=== PATIENT | female | born 1955 | race Caucasian/White ===

== ENCOUNTER 2020-07-24 15:37 | Observation (INO) | payer OTHER ==
[2020-07-24] MEDS ORDERED: POLYETHYL GLY 3350 17 GM/DOSE PO PRN (17:00)
[2020-07-24] MEDS ORDERED: NACHLORIDE 0.45% 1,000 ML IV SCH (17:00)
[2020-07-24] MEDS ORDERED: ONDANSETRON 4 MG (ODT) TAB PO PRN (17:00)
[2020-07-24] MEDS ORDERED: LOPERAMIDE HCL 2 MG CAPSULE PO PRN (17:00)
[2020-07-24] MEDS ORDERED: DIPHENHYDRAMINE 25 MG TAB/CAP PO PRN (17:00)
[2020-07-24] MEDS ORDERED: ONDANSETRON 4 MG/2 ML VIAL IV PRN (17:00)
[2020-07-24] MEDS ORDERED: INFLUENZA VACCINE (for 3y+) 0.5 ML DOSE IMVAC ONE (17:00)
[2020-07-24] MEDS ORDERED: ACETAMINOPHEN 325 MG TABLET PO PRN (17:00)
[2020-07-24] MEDS ORDERED: PNEUMOCOCCAL VACCINE 0.5 ML IMVAC ONE (17:00)
[2020-07-24] MEDS ORDERED: METRONIDAZOLE 500mg IVPB 500 MG/100 ML BAG IV SCH (17:00)
[2020-07-24] MEDS ORDERED: D50W 25 GM/50 ML SYRINGE IV PRN (17:34)
[2020-07-24] MEDS ORDERED: GLUCAGON 1 MG/VIAL IM PRN (17:34)
[2020-07-24] MEDS ORDERED: HYDROMORPHONE HCL 1 MG/ML INJ ONE (18:09)
[2020-07-24] MEDS ORDERED: ONDANSETRON 4 MG/2 ML VIAL ONE (18:09)
[2020-07-24] MEDS ORDERED: ENOXAPARIN 40 MG/0.4 ML SQ ONE (18:10)
[2020-07-24] MEDS ORDERED: METRONIDAZOLE 500mg IVPB 500 MG/100 ML BAG IV ONE (18:10)
[2020-07-24] MEDS ORDERED: CIPROFLOXACIN 400mg IV 400 MG/200 ML BAG IV ONE (18:10)
[2020-07-24] MEDS: HYDROMORPHONE HCL 1 MG/ML INJ IV PRN ×2 (18:15→21:47)
[2020-07-24 18:45] LABS: Absolute Lymphocytes (CBC) 1.6 K/uL (0.7-4.9); Basophils % 0.6 % (0-1.3); Hematocrit 33.3 % (36.0-45.0); Lymphocytes % 31.9 % (15.3-44.8); MPV 8.3 fL (7.6-11.3); RBC Red Blood Cell Count 3.77 M/uL (3.86-4.86)
[2020-07-24 18:52] LABS: Protime INR 1.1
--- NOTE | 2020-07-24 18:58 | RAD REPORT ---
EXAM DESCRIPTION: CTAbdomen Pelvis W Contrast - 07/24/2020 6:28 pm CLINICAL HISTORY: Abdominal pain. abd pain COMPARISON: No comparisons TECHNIQUE: Biphasic CT imaging of the abdomen and pelvis was performed with 100 ml non-ionic IV cont rast. All CT scans are performed using dose optimization technique as appropriate and may include automated exposure control or mA/KV adjustment according to patient size. FINDINGS: The lung bases are clear. The liver, spleen, pancreas, adrenal glands are within normal limits. Possible small stones in both k idneys. No hydronephrosis. No bowel obstruction, free air, free fluid or abscess. Prominent sigmoid diverticulosis coli without diverticulitis. The appendix is normal. No evidence of significant lymphadenopathy. No suspicious bony findings. Right-sided vascular stents. IMPRESSION: Sigmoid diverticulosis coli without diverticulitis. Small stones in both kidneys without hydronephrosis.
--- NOTE | 2020-07-24 19:05 | RAD REPORT ---
EXAM DESCRIPTION: RAD - Chest Pa And Lat (2 Views) - 07/24/2020 6:36 pm CLINICAL HISTORY: abd pain Chest pain. COMPARISON: CHEST PA AND LAT 2 VIEW dated 03/21/2009; CHEST PA AND LAT 2 VIEW dated 11/15/2003; Abdome n Pelvis W Contrast dated 07/24/2020 FINDINGS: The lungs are clear. The heart is mildly enlarged in size. No displaced fractures. Aortic atherosclerosis.
[2020-07-24 19:33] LABS: ALT/SGPT 18 U/L (12-78); AST/SGOT 17 U/L (15-37); Albumin 3.4 g/dL (3.4-5.0); Alkaline Phosphatase 101 U/L (45-117); BUN Blood Urea Nitrogen 11 mg/dL (7-18); Bicarbonate 27 mmol/L (21-32); Bilirubin Direct < 0.1 mg/dL (0-0.2); Bilirubin Total 0.4 mg/dL (0.2-1.0); Glucose Level 74 mg/dL (74-106); Phosphorus 3.6 mg/dL (2.5-4.9); Potassium 3.7 mmol/L (3.5-5.1); Protein, Total 6.4 g/dL (6.4-8.2); Sodium Level 144 mmol/L (136-145)
[2020-07-24 20:15] VITALS: BMI 26.8
[2020-07-24] MEDS: ENOXAPARIN 40 MG/0.4 ML SQ SCH (20:28)
[2020-07-24] MEDS: CIPROFLOXACIN 400 MG/200 ML IVPB IV SCH (20:58)
[2020-07-24] MEDS: INSULIN -REGULAR HUMAN 50 UNIT/0.5 ML ML SQ SCH (21:00)
[2020-07-24 22:32] LABS: Urine Appearance CLEAR; Urine Bilirubin NEGATIVE (NEG); Urine Blood TRACE (NEG); Urine Color YELLOW; Urine Glucose NEGATIVE (NEG); Urine Microscopic Reflex ORDER UMIC; Urine Protein NEGATIVE (NEG); Urine Specific Gravity >=1.030 (1.005-1.030)
[2020-07-24 23:39] LABS: Urine Bacteria <20 /HPF (<20); Urine RBC <5 /HPF (NONE SEEN)
[2020-07-25 04:15] LABS: Absolute Lymphocytes (CBC) 1.8 K/uL (0.7-4.9); Basophils % 0.5 % (0-1.3); Lymphocytes % 31.5 % (15.3-44.8); MPV 8.4 fL (7.6-11.3); RBC Red Blood Cell Count 3.74 M/uL (3.86-4.86)
[2020-07-25 04:41] LABS: Magnesium 2.1 mg/dL (1.8-2.4); Potassium 3.9 mmol/L (3.5-5.1)
[2020-07-25] MEDS: METRONIDAZOLE 500mg IVPB 500 MG/100 ML BAG IV SCH ×2 (04:53→12:03)
[2020-07-25] MEDS: HYDROMORPHONE HCL 1 MG/ML INJ IV PRN ×3 (05:19→13:43)
[2020-07-25] MEDS: INSULIN -REGULAR HUMAN 50 UNIT/0.5 ML ML SQ SCH ×3 (07:30→16:12)
[2020-07-25 08:56] VITALS: O2SAT 94
[2020-07-25] MEDS ORDERED: POTASSIUM CL SA 10 MEQ TAB PO ONE (09:00)
[2020-07-25] MEDS: CIPROFLOXACIN 400 MG/200 ML IVPB IV SCH (09:47)
[2020-07-25] MEDS: ENOXAPARIN 40 MG/0.4 ML SQ SCH (09:48)
[2020-07-25] MEDS ORDERED: hydrOXYzine HCL 25 MG TAB PO PRN (13:03)
[2020-07-25] MEDS ORDERED: MINERAL OIL 30 ML UCUP PO ONE (13:48)
--- NOTE | 2020-07-25 14:38 | P.CNS ---
Date of Consult: 07/25/20 PC: This 65-year-old female presents emergency room with severe right lower quadrant abdominal pain for diagnosis and treatment. HPC: Patient states she had sudden onset of severe hard cramping abdominal pain. Was located just below her umbilicus. States she has had a couple bouts of this in the past. She has been to the ER is on occasion. PMH: Hypertension, coronary artery disease, eqv-wlccldw-ufoiorote diabetes, episodes of diverticulitis PSHx: Previous hysterectomy, cholecystectomy SOC: States she is allergic to latex adhesive tape (medication list has been reviewed) SYS REVIEW: No cough, wheeze, shortness of breath. Denies any urinary complaints. O/E awake alert comfortable at the moment, asking when she is going to be discharged HEENT:, nonicteric Chest: Chest movement equal bilaterally l ABD: Abdomen is soft, minimal tenderness, no guarding or rebound LOCO: Intact DATA: CT scan essentially negative IMPRESSION: Abdominal pain of unknown etiology PLAN: Patient states her pain is resolving. I believe she may have some most likely adhesions from her prior surgeries. She says she has been drinking much since last week. Also again has some difficulty chewing her food. I have ordered some mineral oil, but I do not feel she has a surgical abdomen at this moment. She can be discharged and followed up.
[2020-07-25] MEDS ORDERED: NICOTINE 14 MG/PAT TD SCH (16:00)
--- NOTE | 2020-07-25 16:08 | RAD REPORT ---
EXAM DESCRIPTION: MRI - MRA Abdomen W/Wo Cont - 07/25/2020 3:26 pm CLINICAL HISTORY: abdominal pain COMPARISON: No comparisons FINDINGS: MR angiography of the abdominal aorta was performed. Mild atheromatous narrowing is seen involving the origin of the celiac axis and SMA. Single patent bi lateral renal arteries are present. Patent LUCIA is also seen. Mild atheromatous narrowing is seen of t he infrarenal abdominal aorta without aneurysm. Stent is likely present in the right common iliac art scarlett. IMPRESSION: No significant flow abnormality of mesenteric arterial system observed.
[2020-07-25 16:30] VITALS: BP 142/66; TEMP 97.6
--- NOTE | 2020-07-25 21:08 | P.DS ---
Admission Date: 07/24/20 Discharge Date: 07/25/20 Disposition: ROUTINE DISCHARGE Discharge Condition: FAIR Brief History of Present Illness: LEWIS HAS RLQ PAIN. THIS IS MODERATE. HER CT SCAN SHOWED NO ISSUES WITH APPENDICITIS. SHE HAS DIVERTICULOSIS BUT NO VISIBLE INFECTION. I DID MRA ALSO SHE IS A SMOKER. NO STENOSIS IN ABDOMEN. SHE SI STABLE TO GO HOEM WITH ABX THAT MAY TREAT OCCULT DIVERTICULITIS. SHE WILL NEED COLONOSCOPY LATER, POSSIBLE AFTER AUGUST. Vital Signs/Physical Exam: Temp Pulse Resp BP Pulse Ox 97.6 F 70 16 142/66 H 93 07/25/20 16:00 07/25/20 16:00 07/25/20 16:00 07/25/20 16:00 07/25/20 16:00 Laboratory Data at Discharge: WBC 5.7 K/uL (4.3-10.9) 07/25/20 03:32 Hgb 11.6 g/dL (12.0-15.0) L 07/25/20 03:32 Hct 33.0 % (36.0-45.0) L 07/25/20 03:32 Plt Count 158 K/uL (152-406) 07/25/20 03:32 PT 12.9 SECONDS (9.5-12.5) H 07/24/20 18:10 INR 1.10 07/24/20 18:10 APTT 30.7 SECONDS (24.3-36.9) 07/24/20 18:10 Sodium 143 mmol/L (136-145) 07/25/20 03:32 Potassium 3.9 mmol/L (3.5-5.1) 07/25/20 03:32 BUN 11 mg/dL (7-18) 07/25/20 03:32 Creatinine 0.73 mg/dL (0.55-1.3) 07/25/20 03:32 Glucose 85 mg/dL (74-106) 07/25/20 03:32 Phosphorus 3.6 mg/dL (2.5-4.9) 07/24/20 18:10 Magnesium 2.1 mg/dL (1.8-2.4) 07/25/20 03:32 Total Bilirubin 0.4 mg/dL (0.2-1.0) 07/24/20 18:10 AST 17 U/L (15-37) 07/24/20 18:10 ALT 18 U/L (12-78) 07/24/20 18:10 Alkaline Phosphatase 101 U/L (45-117) 07/24/20 18:10 Home Medications: Metformin HCl [Glucophage] 500 mg PO DAILY WITH BREAKFAST 12/30/17 Aspirin Chewable [Aspirin Chewable*] 1 tab PO DAILY 07/24/20 Atorvastatin Calcium [Lipitor*] 1 tab PO DAILY 07/24/20 Duloxetine [Cymbalta *] 50 mg PO DAILY 07/24/20 Isosorbide Mononitrate [Isosorbide Mononitrate ER] 1 tab PO DAILY 07/24/20 Metoprolol Succinate [Toprol Xl*] 1 tab PO DAILY 07/24/20 Prazosin HCl [Minipress*] 1 tab PO DAILY 07/24/20 hydrOXYzine HCL [Atarax*] 1 tab PO DAILYPRN PRN 07/24/20 Followup: Franklyn Dougherty MD [Primary Care Provider] -
[2020-07-26] MEDS ORDERED: METFORMIN HCL 500 MG TAB PO SCH (08:00)
[2020-07-26] MEDS ORDERED: METOPROLOL XL 25 MG TAB PO SCH (09:00)
[2020-07-26] MEDS ORDERED: ASPIRIN 81 MG CHEWABLE TABLET PO SCH (09:00)
[2020-07-26] MEDS ORDERED: DULOXETINE 30 MG CAP PO SCH (09:00)
[2020-07-26] MEDS ORDERED: ISOSORBIDE MONO SR 30 MG TAB PO SCH (09:00)
[2020-07-26] MEDS ORDERED: ATORVASTATIN 20 MG TAB PO SCH (09:00)
[2020-07-26] MEDS ORDERED: DULOXETINE 20 MG CAP PO SCH (09:00)
== END 2020-07-25 17:59 | disposition home or self-care (01) ==
LOC: ERHOLD 15:37 → 2ND 18:32
PROVIDERS: ADMIT Internal Medicine; ATTEND Internal Medicine
DX: R10.31 Right lower quadrant pain (principal); K57.30 Diverticulosis of large intestine without perforation or abscess without bleeding; I10 Essential (primary) hypertension; Z20.828 Contact with and (suspected) exposure to other viral communicable diseases; I25.10 Atherosclerotic heart disease of native coronary artery without angina pectoris; E11.9 Type 2 diabetes mellitus without complications; Z79.84 Long term (current) use of oral hypoglycemic drugs
CPT/HCPCS: 85025 ×2; 80048 ×2; 36415 ×2; 83735 ×2; 84100; 85610; 82565; 82947 ×4; 80076; 85730; 84443; 83036; 82607; 82306; 82043; 74177; 71046; U0002; Q9967; A9577; C8902; J1650 ×2; J1170 ×5; J2405; J0744 ×2; G0379; G0378 ×3; 81003; 81015

== ENCOUNTER 2022-02-14 17:42 | Emergency (ER) | payer OTHER ==
--- OUTSIDE RECORDS SUMMARY | 2022-02-14 17:45 | XMS REPORT | Continuity of Care Document ---
:1955 Author Organization [facility] Address [facility] [place] [address] Care Team Providers Name Role Phone IHDE_G Attending Clinician Unavailable IHDE_G Admitting Clinician Unavailable Payers Payer Name Policy Type Policy Number Effective Date Expiration Date S bowen [employer] - GOLD PLUS [id number] (MEDICARE REPLACEMENT HMO) Problems Condition Condition Condition Status Onset Resolution Last Treating Co mments Source Name Details Category Date Date Treatment Clinician Date Stress Stress Problem Active Common incontinen incontinen Sp yusuf ce [facility] Rectocele Rectocele Problem Active Com mon [facility] Atrophic Atrophic Diagnosis Active Com mon vaginitis vaginitis Spir [facility] Surgical Surgical Problem Active Commo n menopause menopause Spir [facility] Prolapse Prolapse Problem Active Commo n of of Spirit anterior anterior [facility] vaginal vaginal [facility] Smoker Smoker Diagnosis Active Common [facility] Pain, Pain, Diagnosis Active Common pelvic, pelvic, Spirit female female [facility] Hematuria, Hematuria, Diagnosis Active Common unspecifie unspecifie Sp yusuf d type d type [facility] Allergies, Adverse Reactions, Alerts This patient has no known allergies or adverse reactions. Medications Ordered Filled Start Stop Current Ordering Indication Dosage Frequency Signature Comments Components Source Medication Medication Date Date Medication? Clinician (SIG) Name Name Carlos Gonzalez 2018- No Connie 1 tablet C ommon 12-02 04-10 Velásquez [facility] 00:00: 00:00 - [facility] 00 :00 [facility] Duloxetine Duloxetine Yes Connie 1 capsule Common HCl HCl Velásquez [facility] HydrOXYzine HydrOXYzine Yes Connie 1 capsule Common Pamoate Pamoate Velásquez as needed Spir [facility] Metformin Metformin Yes Connie 1 tablet Common HCl HCl Velásquez with meals Spirit - [facility] Procedures This patient has no known procedures. Encounters Start End Encounter Admission Attending Care Care Encounter Source Date/Time Date/Time Type Type Clinicians Facility Department ID 2019-10-08 Inpatient MHSE [id number] MH 06:19:00 [facility] 2020-07-20 2020-07-20 Outpatient IHDE_G MMG [id number] [place] 04:24:00 04:24:00 [id number] 2019-07-25 2019-07-25 Emergency E MHBL MHBL [id number] [facility]BL 14:01:00 14:01:00 2019-07-23 2019-07-23 Outpatient MHBL MED [id number] [facility]BL 07:30:00 07:30:00 2017-11-27 2017-11-27 [id number] Common 16:06:00 16:06:00 [facility] 2017-11-27 2017-11-27 [facility] [id number] Common 14:30:00 14:30:00 t [facility] Care Care [facility] Results Test Description Test Time Test Comments Results Result Comments Source SARS-CoV-2 (COVID-19), RT-PCR/TMA 2021-09-22 08:22:09 Test Item Value Reference Range Interpretation Comme nts SARS-CoV-2 INTERPRETATION POSITIVE SEE NOTE A S ARS-CoV-2 RNA DETECTEDPositive (test code = 74745) results are indicative of the presence of CHRIS S-CoV-2 RNA;clinical co rrelation with patient history and other diagnosticinfor mation is necessary to de termine patient infection statu s.Positive results do not rule out bacterial infection or co -infectionwith other viruses. Positive and negative predic tive values oftesting are h ighly dependent on prevalence. SOURCE (test code = 82111) NOT SPECIFIED Note: Methodology is [employer] Real-Time RT-PC R. The expected result or ref erence range is NEGATIVE (Not D etected). For more information reg arding COVID-19 testing to incl ude clinicalinforma tion, methodology detail, intende d use, FDA authorization a ndrecommended fact sheets for jazmyn ents or healthcare providers, see [facility] Announcement: S ARS-CoV-2 (COVID-19) by Claudine RIGGINS at URL below (note,fact shee ts are provided by method given in report:https:// www.[employer]/cl inicians/client -communications/ Alternatively, see downloadable PDF fact sheet at:https://www. [employer]/COVID- 19-RT-PCR UNLESS OTHERWISE INDICATED, ALL TESTING PERFORMED ATCLINICAL PATH [facility]. [address] [place] [address] 4 LABORATORY DIRE CTOR: DALY BETHEA M.D. CLIA NUMBER [id number] [facility] [place]. [id number]
[2022-02-14 18:12] LABS: Urine Blood 2+ (Negative); Urine Glucose Negative (Negative); Urine Protein 1+ (Negative); Urine Specific Gravity >=1.030 (1.005-1.030); Urine pH 5.5 (5.0-7.0)
[2022-02-14 19:21] LABS: Urine Bacteria <20 /HPF (<20); Urine Mucus 1+ /HPF (NONE SEEN)
--- NOTE | 2022-02-14 19:33 | RAD REPORT ---
EXAM DESCRIPTION: CTStone Protocol - 02/14/2022 7:20 pm CLINICAL HISTORY: hematuria COMPARISON: Abdomen Pelvis W Contrast dated 07/24/2020; CTSTONE PROTOCOL dated 05/30/2012 TECHNIQUE: CT of the abdomen and pelvis was performed. All CT scans are performed using dose optimization technique as appropriate and may include automated exposure control or mA/KV adjustment according to patient size. FINDINGS: Lower chest: No acute abnormality. Mild coronary artery calcifications. Liver: No acute abnormality or suspicious lesions. Biliary: No biliary ductal dilatation. Cholecystectomy. Stomach: No significant focal abnormality. Duodenum: No significant focal abnormality. Pancreas: No significant abnormality. Spleen: No significant abnormality. Adrenal: No suspicious lesions. Kidney/ureter: No hydronephrosis. No renal calculi. Retroperitoneum: No retroperitoneal adenopathy. Vascular: No aneurysm. Right common iliac artery, femoral artery, and superficial femoral artery sten ts. Bowel: No significant focal abnormality. Peritoneum: No ascites or free air. Bladder: Grossly unremarkable. Reproductive: No adnexal masses. Hysterectomy Bones: No acute fracture. Other: n/a IMPRESSION: No acute intra-abdominal or pelvic finding. Nonobstructive bilateral nephrolithiasis. No rmal appendix.
--- NOTE | 2022-02-14 19:49 | EDPHYS ---
Physician Documentation [facility] Name: Ashley Bañuelos Age: 66 yrs Sex: Female : 1955 Arrival Date: 02/14/2022 Time: 17:45 Bed Waiting Private MD: Franklyn Dougherty V ED Physician Alfonzo Anaya HPI: 02/14 19:47 This 66 yrs old Female presents to ER via Ambulatory with complaints of Possible Kidney kb Stone. 19:47 The patient presents with urinary symptoms, dysuria, frequency, hematuria. Onset: The kb symptoms/episode began/occurred this morning. Modifying factors: The symptoms are alleviated by nothing, the symptoms are aggravated by urinating. Associated signs and symptoms: Pertinent positives: dysuria, hematuria, urinary frequency, Pertinent negatives: fever. Severity of symptoms: At their worst the symptoms were moderate, in the emergency department the symptoms are unchanged. The patient has not experienced similar symptoms in the past. The patient has not recently seen a physician. Pt reports dysuria, hematuria, and urinary frequency that started this morning.. Historical: - Allergies: 18:05 Latex, Natural Rubber; aa5 - PMHx: 18:05 Anxiety; Diabetes mellitus; Depressive disorder; Kidney stone; Angina pectoris; aa5 - PSHx: 18:05 Cholecystectomy; hysterectomy; left knee; aa5 - Immunization history:: Client reports receiving the 2nd dose of the Covid vaccine. - Social history:: Smoking status: Patient reports the use of cigarette tobacco products, smokes one pack cigarettes per day. ROS: 19:46 Constitutional: Negative for fever, chills, and weight loss. kb 19:46 : Positive for urinary frequency, hematuria, burning with urination. 19:46 All other systems are negative. Exam: 19:46 Constitutional: This is a well developed, well nourished patient who is awake, alert, kb and in no acute distress. Head/Face: Normocephalic, atraumatic. ENT: Moist Mucous membranes Cardiovascular: Regular rate and rhythm with a normal S1 and S2. No gallops, murmurs, or rubs. No pulse deficits. Respiratory: Respirations even and unlabored. No increased work of breathing. Talking in full sentences Abdomen/GI: Soft, non-tender. No distention Back: No spinal tenderness. No costovertebral tenderness. Full range of motion. Skin: Warm, dry with normal turgor. Normal color. MS/ Extremity: Pulses equal, no cyanosis. Neurovascular intact. Full, normal range of motion. Neuro: Awake and alert, GCS 15, oriented to person, place, time, and situation. Moves all extremities. Normal gait. Psych: Awake, alert, with orientation to person, place and time. Behavior, mood, and affect are within normal limits. Vital Signs: 17:55 BP 160 / 94; Pulse 79; Resp 18 S; Temp 98.5(O); Pulse Ox 99% on R/A; Weight 63.5 kg aa5 (R); Height 5 ft. 1 in. (154.94 cm); 17:55 Body Mass Index 26.45 (63.50 kg, 154.94 cm) aa5 MDM: 17:55 Patient medically screened. kb 19:46 Data reviewed: vital signs, nurses notes. Data interpreted: Pulse oximetry: on room air kb is 99 %. Interpretation: normal. Counseling: I had a detailed discussion with the patient and/or guardian regarding: the historical points, exam findings, and any diagnostic results supporting the discharge/admit diagnosis, lab results, radiology results, the need for outpatient follow up, a family practitioner, to return to the emergency department if symptoms worsen or persist or if there are any questions or concerns that arise at home. 02/14 18:02 Order name: Urine Microscopic Only; Complete Time: 19:37 kb 02/14 18:12 Order name: Urine Dipstick-Ancillary; Complete Time: 18:14 EDMS 02/14 18:02 Order name: Urine Dipstick-Ancillary (obtain specimen); Complete Time: 20:00 kb 02/14 18:38 Order name: CT Stone Protocol; Complete Time: 19:37 kb 02/14 19:24 Order name: Urine Culture EDMS Administered Medications: 20:03 Drug: Ketorolac 30 mg Route: IM; Site: right gluteus; lp1 20:05 Follow up: Response: Medication administered at discharge. lp1 Disposition: 19:48 Co-signature as Attending Physician, Alfonzo KING was immediately available on-site ms3 in the Emergency Department for consultation in the care of the patient.. Disposition Summary: 02/14/22 19:49 Discharge Ordered Location: Home kb Condition: Stable kb Diagnosis - UTI/ Urinary tract infection, site not specified kb Followup: kb - With: Emergency Department - When: As needed - Reason: Worsening of condition Followup: kb - With: Private Physician - When: 2 - 3 days - Reason: Recheck today's complaints, Continuance of care, Re-evaluation by your physician Discharge Instructions: - Discharge Summary Sheet kb - Urinary Tract Infection, Adult, [id number] kb Forms: - Medication Reconciliation Form kb - Thank You Letter kb - Antibiotic Education kb - Prescription Opioid Use kb Prescriptions: - Augmentin 875-125 mg Oral Tablet - take 1 tablet by ORAL route every 12 hours for 10 days; 20 tablet; Refills: 0, kb Product Selection Permitted Signatures: Dispatcher [employer] EDIfeoma Alvarado, CARLOS PATE-Ashley William, RN RN aa5 Bethany Wyman RN RN lp1 Alfonzo Anaya DO DO ms3 Corrections: (The following items were deleted from the chart) 18:06 18:05 PMHx: Kidney disease; aa5 aa5
--- NOTE | 2022-02-14 19:49 | ER ---
Nurse's Notes [facility] Name: Ashley Bañuelos Age: 66 yrs Sex: Female : 1955 Arrival Date: 02/14/2022 Time: 17:45 Bed Waiting Private MD: Franklyn Dougherty V Diagnosis: UTI/ Urinary tract infection, site not specified Presentation: 02/14 17:55 Chief complaint: Patient states: dysuria and hematuria today. aa5 17:55 Coronavirus screen: At this time, the client does not indicate any symptoms associated aa5 with coronavirus-19. Ebola Screen: No symptoms or risks identified at this time. Initial Sepsis Screen: Does the patient meet any 2 criteria? No. Patient's initial sepsis screen is negative. Does the patient have a suspected source of infection? No. Patient's initial sepsis screen is negative. Risk Assessment: Do you want to hurt yourself or someone else? Patient reports no desire to harm self or others. Onset of symptoms was February 14, 2022. 17:55 Acuity: [place] 3 aa5 17:55 Method Of Arrival: Ambulatory aa5 Historical: - Allergies: 18:05 Latex, Natural Rubber; aa5 - PMHx: 18:05 Anxiety; Diabetes mellitus; Depressive disorder; Kidney stone; Angina pectoris; aa5 - PSHx: 18:05 Cholecystectomy; hysterectomy; left knee; aa5 - Immunization history:: Client reports receiving the 2nd dose of the Covid vaccine. - Social history:: Smoking status: Patient reports the use of cigarette tobacco products, smokes one pack cigarettes per day. Screenin:00 Abuse screen: Denies threats or abuse. Denies injuries from another. Nutritional lp1 screening: No deficits noted. Tuberculosis screening: No symptoms or risk factors identified. Fall Risk None identified. Assessment: 19:55 General: Appears uncomfortable, Behavior is appropriate for age. Pain: Complains of lp1 pain in suprapubic area Pain currently is 7 out of 10 on a pain scale. Neuro: Level of Consciousness is awake, alert, obeys commands. Cardiovascular: Patient's skin is warm and dry. Respiratory: Respiratory effort is even, unlabored. GI: Abdomen is non-distended. : Reports burning with urination, pain in suprapubic area with urination, urinary frequency. EENT: No signs and/or symptoms were reported regarding the EENT system. Derm: Skin is pink, warm \T\ dry. Musculoskeletal: No deficits noted. 20:00 Reassessment: Ifeoma Lopez NP notified of patient complaint of pain to pelvic area; lp1 Verbal order for Toradol 30mg IM x1 now. Vital Signs: 17:55 BP 160 / 94; Pulse 79; Resp 18 S; Temp 98.5(O); Pulse Ox 99% on R/A; Weight 63.5 kg aa5 (R); Height 5 ft. 1 in. (154.94 cm); 17:55 Body Mass Index 26.45 (63.50 kg, 154.94 cm) aa5 ED Course: 17:45 Patient arrived in ED. mr 17:45 Franklyn Dougherty MD is Private Physician. mr 17:55 Ifeoma Lopez FNP-C [facility] kb 17:55 Alfonzo Anaya DO is Attending Physician. kb 17:55 Arm band placed on. aa5 18:05 Triage completed. aa5 19:23 CT Stone Protocol In Process Unspecified. EDMS 20:00 Patient has correct armband on for positive identification. lp1 20:00 No provider procedures requiring assistance completed. Patient did not have IV access lp1 during this emergency room visit. 20:01 Bethany Wyman, RN is Primary Nurse. lp1 Administered Medications: 20:03 Drug: Ketorolac 30 mg Route: IM; Site: right gluteus; lp1 20:05 Follow up: Response: Medication administered at discharge. lp1 Medication: 20:00 VIS not applicable for this client. lp1 Outcome: 19:49 Discharge ordered by . kb 20:03 Discharged to home ambulatory. lp1 20:03 Condition: good 20:03 Discharge instructions given to patient, Instructed on discharge instructions, follow up and referral plans. medication usage, Demonstrated understanding of instructions, follow-up care, medications, Prescriptions given X 1. 20:05 Patient left the ED. lp1 Addendum: 02/18/2022 09:04 Addendum: Culture Results: Positive urine culture. Bacteria is resistant to, has i w intermediate sensitivity, or is not tested against prescribed antibiotics. Report given to SYDNIE for further evaluation and then to rolled ham lacer for follow up with patient. Phone call Attempt #1 pt did not answer, left voice mail. Signatures: Dispatcher [employer] Ifeoma Sims, CARD SERVICES SPECIALIST-C CARD SERVICES SPECIALIST-Terence Cano, Aliyah mr Germaine Garza RN RN iw Ashley Blue RN RN aa5 Bethany Wyman RN RN lp1 Corrections: (The following items were deleted from the chart) 02/14 18:06 18:05 PMHx: Kidney disease; shabbir shea
[2022-02-14] MEDS ORDERED: KETOROLAC 30 MG/ML INJ ONE (20:03)
[2022-02-14 20:10] VITALS: BP 160/94; TEMP 98.5; O2SAT 99
== END 2022-02-14 20:05 | disposition home or self-care (01) ==
LOC: ER 17:42
DX: N39.0 Urinary tract infection, site not specified (principal); E11.9 Type 2 diabetes mellitus without complications; F17.210 Nicotine dependence, cigarettes, uncomplicated; Z91.040 Latex allergy status; Z91.048 Other nonmedicinal substance allergy status
CPT/HCPCS: 74176; 76377; 81003; 81015; 87077; 87086; 87088; 87186; 96372; 99283

== ENCOUNTER 2024-02-13 13:21 | Emergency (ER) | payer OTHER ==
--- OUTSIDE RECORDS SUMMARY | 2024-02-13 13:25 | XMS REPORT | Continuity of Care Document ---
Author Name Unknown Address [address] [place] [address] [employer]connect Address [address] [place] [address] [address] [place] [address] Care Team Providers Care Rigger Third Name Role Phone [email or web address]_S Attending Clinician Unavaila ble IHDE_G Attending Clinician Unavailable [email or web address]_S Admitting Clinician Unavaila ble IHDE_G Admitting Clinician Unavailable Payers Payer Name Policy Type Policy Number Effective Date Expirati on Date Source Albumatic (MEDICARE REPLACEMENT HMO) [id number] Problems Condition Name Condition Details Condition Category Status Onset Date Resolution Date Last Treatment Date Treating Clinician Comments Source Stress incontinen ce Stress incontinen ce Problem Active [facility] Rectocele Rectocele Problem Active Com [facility] Atrophic vaginitis Atrophic vaginitis Diagnosis Active [facility] Surgical menopause Surgical menopause Problem Active [facility] Prolapse of anterior vaginal wall Prolapse of anterior vaginal wall Problem Active [facility] Smoker Smoker Diagnosis Active [facility] Pain, pelvic, female Pain, pelvic, female Diagnosis Active [facility] Hematuria, unspecifie d type Hematuria, unspecifie d type Diagnosis Active [facility] Medications Ordered Medication Name Filled Medication Name Start Date Stop Date Current Medication? Ordering Clinician Indication Dosage Frequency Signature (SIG) Comments Components Source Flagyl Flagyl 12-02 00:00: 00 12-09 00:00 :00 No Connie Velásquez 1 tablet [facility] Duloxetine HCl Duloxetine HCl Yes Connie Velásquez 1 capsule [facility] HydrOXYzine Pamoate HydrOXYzine Pamoate Yes Connie Velásquez 1 capsule as needed [facility] Metformin HCl Metformin HCl Yes Connie Velásquez 1 tablet with meals [facility] Encounters Start Date/Time End Date/Time Encounter Type Admission Type Attending Clinicians Care Facility Care Department Encounter ID Source 2023-07-02 00:00:00 2023-07-02 00:00:00 Outpatient [email or web address] diyala_S [facility] [id number] [facility] 2020-07-20 04:24:00 2020-07-20 04:24:00 Outpatient IHDE_G [facility] MMG [id number] [facility] 2017-11-27 16:06:00 2017-11-27 16:06:00 [facility] [id number] [facility] 2017-11-27 14:30:00 2017-11-27 14:30:00 Outpatient [facility] [id number] [facility] Results Test Description Test Time Test Comments Results Result Co mments Source
[2024-02-13] MEDS ORDERED: HYDROCODONE/APAP 7.5/325 MG TAB ONE (13:54)
--- NOTE | 2024-02-13 14:42 | RAD REPORT ---
EXAM DESCRIPTION: RAD - Shoulder Left 2 View - 02/13/2024 2:36 pm CLINICAL HISTORY: PAIN COMPARISON: No comparisons FINDINGS: Moderate AC joint and glenohumeral joint arthritic changes are present. No acute fracture or dislocation seen.
--- NOTE | 2024-02-13 14:42 | RAD REPORT ---
EXAM DESCRIPTION: RAD - Chest Single View - 02/13/2024 2:36 pm CLINICAL HISTORY: PAIN Chest pain. COMPARISON: Ribs Right dated 02/13/2024 FINDINGS: Portable technique limits examination quality. There is a 1 cm nodular density in the right mid lung. The lungs are otherwise clear. The heart is no rmal in size. No displaced fractures. IMPRESSION: 1 cm nodular density in the right mid lung. Recommend CT chest for further evaluation.
--- NOTE | 2024-02-13 14:44 | RAD REPORT ---
EXAM DESCRIPTION: RAD - Ribs Right - 02/13/2024 2:36 pm CLINICAL HISTORY: BLUNT CHEST TRAUMA COMPARISON: <Comparisons> FINDINGS: The vague 1 cm nodular density is seen in the right mid lung. There is no evidence of acut e fracture or aggressive rib lesion. No pneumothorax.
--- NOTE | 2024-02-13 15:14 | RAD REPORT ---
EXAM DESCRIPTION: CT - Thorax Wo Con CLINICAL HISTORY: Chest pain BLUNT CHEST TRAUMA COMPARISON: No comparisons FINDINGS: 13 mm noncalcified nodule is present in the right upper lobe (image 22/62). Elsewhere, the lungs are mildly emphysematous. No pleural thickening or pleural effusion. No pneumothorax. Slightly enlarged pretracheal lymph node measuring 8-9 mm seen. No displaced rib fractures are evident. Punctate calculus left kidney. All CT scans are performed using dose optimization technique as appropriate and may include automated exposure control or mA/KV adjustment according to patient size. IMPRESSION: 13 mm irregularly shaped noncalcified nodule right upper lobe suspicious for neoplasia.P ET-CT follow-up would be recommended for further evaluation. No rib fracture is seen on the included aspects of the ribs on the study.
--- NOTE | 2024-02-13 15:25 | EDPHYS ---
Physician Documentation [facility] Name: Ashley Bañuelos Age: 68 yrs Sex: Female : 1955 Arrival Date: 02/13/2024 Time: 13:21 Bed IW1 Private MD: Franklyn Dougherty V ED Physician Ky Booth HPI: 02/12 13:32 This 68 yrs old Female presents to ER via Unassigned with complaints of Fell off Couch. kb 13:32 Pt is a 68 year old female who presents for right rib and left shoulder pain after fall kb from couch at 0400 today. Pain is worse with movement or breathing. . Historical: - Allergies: 13:36 Latex; ll1 - PMHx: 13:36 angina pectoris; Anxiety; depressive disorder; diabetes mellitus; Kidney stone; ll1 - PSHx: 13:36 Cholecystectomy; hysterectomy; left knee; ll1 - Immunization history:: Adult Immunizations up to date. - Infectious Disease History:: Denies. - Social history:: Smoking status: Patient reports the use of cigarette tobacco products, smokes one pack cigarettes per day. ROS: 13:47 Constitutional: As per HPI kb Exam: 13:47 Constitutional: This is a well developed, well nourished patient who is awake, alert, kb and in no acute distress. Head/Face: Normocephalic, atraumatic. ENT: Moist Mucous membranes Cardiovascular: Regular rate Respiratory: Respirations even and unlabored. No increased work of breathing. Talking in full sentences Abdomen/GI: Soft, non-tender. No distention Skin: Warm, dry with normal turgor. Normal color. Neuro: Awake and alert, GCS 15, oriented to person, place, time, and situation. Moves all extremities. Normal gait. 13:47 Chest/axilla: Palpation: tenderness, that is moderate, of the right breast, that totally reproduces the patient's complaints, 13:47 Musculoskeletal/extremity: Extremities: grossly normal except: noted in the anterior aspect of left shoulder: pain, tenderness, ROM: limited active range of motion, in the right arm, due to pain in ribs, Circulation is intact in all extremities. Sensation intact. Vital Signs: 13:35 BP 151 / 72; Pulse 91; Resp 18; Temp 97.6; Pulse Ox 98% ; Weight 61.23 kg; Height 5 ft. ll1 1 in. ; Pain 9/10; 15:22 BP 169 / 91; Pulse 82; Resp 17; Temp 97.2; Pulse Ox 98% ; Pain 5/10; ll1 13:35 Body Mass Index 25.51 (61.23 kg, 154.94 cm) ll1 13:35 Pain Scale: Adult ll1 15:22 Pain Scale: Adult ll1 MDM: 13:23 Patient medically screened. kb 13:48 Differential diagnosis: contusion, fracture, sprain. Data reviewed: vital signs, nurses kb notes. 15:28 Counseling: I had a detailed discussion with the patient and/or guardian regarding the kb historical points, exam findings, and any diagnostic results supporting the discharge/admit diagnosis, radiology results, the need for outpatient follow up, a family practitioner, to return to the emergency department if symptoms worsen or persist or if there are any questions or concerns that arise at home. ED course: Pt educated on CT findings and need for follow up for PET scan. Verbal understanding received. . 02/12 13:34 Order name: Ribs Right XRAY; Complete Time: 14:45 kb 02/12 13:34 Order name: Chest Single View XRAY; Complete Time: 14:45 kb 02/12 13:34 Order name: Shoulder Left (2 View) XRAY; Complete Time: 14:45 kb 02/12 14:46 Order name: CT Chest Wo Con; Complete Time: 15:16 kb Administered Medications: 13:59 Drug: Hydrocodone-Acetaminophen PO (7.5 mg-325 mg) 1 tabs PO once {Note: pain 8/10 RASS ll1 0..} Route: PO; 15:31 Follow up: Response: No adverse reaction; Pain is decreased; RASS: Alert and Calm (0) ll1 Disposition Summary: 02/13/24 15:25 Discharge Ordered Notes: Location: Home kb Condition: Stable kb Diagnosis - Right chest contusion kb - 13mm nodule right upper lobe of lung kb Followup: kb - With: Private Physician - When: 2 - 3 days - Reason: Recheck today's complaints, Continuance of care, Re-evaluation by your physician Followup: kb - With: Emergency Department - When: As needed - Reason: Worsening of condition Discharge Instructions: - Discharge Summary Sheet kb - Chest Contusion, Adult, [id number] kb Forms: - Medication Reconciliation Form kb - Antibiotic Education kb - Prescription Opioid Use kb - Patient Portal Instructions kb - Leadership Thank You Letter kb Prescriptions: - Diclofenac Sodium 75 mg Oral tablet, delayed release (enteric coated) - take 1 tablet ORAL route 2 times per day As needed; 30 tablet; Refills: 0, kb Product Selection Permitted - orphenadrine citrate 100 mg Oral Tablet Sustained Release - take 1 tablet ORAL route 2 times per day As needed; 20 tablet; Refills: 0, kb Product Selection Permitted Signatures: Dispatcher [employer] EDIfeoma Alvarado, RESP THER-C RESP THER-Tawnya Sosa RN RN ll1 Corrections: (The following items were deleted from the chart) 14:46 14:46 Thorax Wo Con+CT.RAD.BRZ ordered. [facility]
--- NOTE | 2024-02-13 15:25 | ER ---
Nurse's Notes [facility] Name: Ashley Bañuelos Age: 68 yrs Sex: Female : 1955 Arrival Date: 02/13/2024 Time: 13:21 Bed IW1 Private MD: Franklyn Dougherty V Diagnosis: Right chest contusion;13mm nodule right upper lobe of lung Presentation: 02/12 13:35 Chief complaint: Patient states: Fell off couch at 4 AM. R sided trunk pain since. ll1 Slight L shoulder pain. No LOC. Coronavirus screen: Client denies travel out of the [place] in the last 14 days. At this time, the client does not indicate any symptoms associated with coronavirus-19. Ebola Screen: Patient denies travel to an Ebola-affected area in the 21 days before illness onset. Initial Sepsis Screen: Does the patient meet any 2 criteria? No. Patient's initial sepsis screen is negative. Does the patient have a suspected source of infection? No. Patient's initial sepsis screen is negative. Risk Assessment: Do you want to hurt yourself or someone else? Patient reports no desire to harm self or others. Onset of symptoms was February 13, 2024. 13:35 Method Of Arrival: Ambulatory ll1 13:35 Acuity: [place] 3 ll1 Triage Assessment: 13:36 General: Appears uncomfortable, Behavior is calm, cooperative, appropriate for age. ll1 Pain: Complains of pain in R trunk Pain currently is 8 out of 10 on a pain scale. Quality of pain is described as aching. Musculoskeletal: Circulation, motion, and sensation intact. Capillary refill < 3 seconds, Reports pain in R trunk and L shoulder. Injury Description: Bruise. Historical: - Allergies: 13:36 Latex; ll1 - PMHx: 13:36 angina pectoris; Anxiety; depressive disorder; diabetes mellitus; Kidney stone; ll1 - PSHx: 13:36 Cholecystectomy; hysterectomy; left knee; ll1 - Immunization history:: Adult Immunizations up to date. - Infectious Disease History:: Denies. - Social history:: Smoking status: Patient reports the use of cigarette tobacco products, smokes one pack cigarettes per day. Screenin:32 [facility] ED Fall Risk Assessment (Adult) History of falling in the last 3 months, ll1 including since admission Yes- single mechanical fall (1 pt) Confusion or Disorientation No (0 pts) Intoxicated or Sedated No (0 pts) Impaired Gait No (0 pts) Mobility Assist Device Used No (0 pt) Altered Elimination No (0 pt) Score/Fall Risk Level 0 - 2 = Low Risk Maintained a safe environment, Hourly rounding (assess needs \T\ fall precautionary measures) done. Abuse screen: Denies threats or abuse. Nutritional screening: No deficits noted. Tuberculosis screening: No symptoms or risk factors identified. Assessment: 13:58 Reassessment: No changes from previously documented assessment. Patient and/or family ll1 updated on plan of care and expected duration. Pain level reassessed. 14:52 Reassessment: No changes from previously documented assessment. Wanted to stay in ll1 lobby, did not want to go to a room at this time. 15:31 Reassessment: No changes from previously documented assessment. Patient and/or family ll1 updated on plan of care and expected duration. Pain level reassessed. Patient is alert, oriented x 3, equal unlabored respirations, skin warm/dry/pink. Vital Signs: 13:35 BP 151 / 72; Pulse 91; Resp 18; Temp 97.6; Pulse Ox 98% ; Weight 61.23 kg; Height 5 ft. ll1 1 in. ; Pain 9/10; 15:22 BP 169 / 91; Pulse 82; Resp 17; Temp 97.2; Pulse Ox 98% ; Pain 5/10; ll1 13:35 Body Mass Index 25.51 (61.23 kg, 154.94 cm) ll1 13:35 Pain Scale: Adult ll1 15:22 Pain Scale: Adult ll1 ED Course: 13:23 Patient arrived in ED. rg4 13:23 Franklyn Dougherty MD is Private Physician. rg4 13:23 Ife[facility] Lopez [facility]C [facility]. kb 13:23 Ky Booth MD is Attending Physician. kb 13:36 Triage completed. ll1 13:36 Arm band placed on. ll1 14:37 Ribs Right XRAY In Process Unspecified. EDMS 14:37 Chest Single View XRAY In Process Unspecified. EDMS 14:37 Shoulder Left (2 View) XRAY In Process Unspecified. EDMS 15:00 CT Chest Wo Con In Process Unspecified. EDMS 15:32 Patient has correct armband on for positive identification. Provided Education on: do ll1 not drink alcohol or drive on prescribed medications. 15:32 No provider procedures requiring assistance completed. Patient did not have IV access ll1 during this emergency room visit. Administered Medications: 13:59 Drug: Hydrocodone-Acetaminophen PO (7.5 mg-325 mg) 1 tabs PO once {Note: pain 8/10 RASS ll1 0..} Route: PO; 15:31 Follow up: Response: No adverse reaction; Pain is decreased; RASS: Alert and Calm (0) ll1 Medication: 16:04 VIS not applicable for this client. ll1 Outcome: 15:25 Discharge ordered by MD. lutz 15:32 Patient left the ED. ll1 15:32 Discharged to home ambulatory, ll1 15:32 Condition: stable 15:32 Discharge instructions given to patient, family, Instructed on discharge instructions, follow up and referral plans. no drinking with medication, no driving heavy equipment, medication usage, Demonstrated understanding of instructions, follow-up care, medications, Prescriptions given X 2, Signatures: Dispatcher [employer] EDUT Ifeoma Lopez, BRAZER CONTROLLED ATMOSPHERIC FURNACE-C BRAZER CONTROLLED ATMOSPHERIC FURNACE-Phuong Moss rg4 Tawnya Reina, RN RN ll1 Corrections: (The following items were deleted from the chart) 15:24 15:22 BP 169 / 101; Pulse 82bpm; Resp 17bpm; Pulse Ox 98%; Temp 97.2F; Pain 5/10, ll1 Adult; ll1
[2024-02-13 16:04] VITALS: BP 169/91; TEMP 97.2; O2SAT 98
== END 2024-02-13 15:32 | disposition home or self-care (01) ==
LOC: ER 13:21
DX: S20.211A Contusion of right front wall of thorax, initial encounter (principal); R91.1 Solitary pulmonary nodule; W08.XXXA Fall from other furniture, initial encounter
CPT/HCPCS: 71045; 71250; 99283

== ENCOUNTER 2025-01-18 15:45 | Emergency (ER) | payer OTHER ==
--- OUTSIDE RECORDS SUMMARY | 2025-01-18 15:48 | XMS REPORT | Clinical Summary ---
Author Name Unknown Organization [facility] Address [address] [place] [address] Care Team Providers Care Camera Storage Clerk Name Role Phone Renny Stover MD Unavailable [phone] Suzanne Denis RN Unavailable [phone] Andi Cassidy MD Unavailable Renny Stover MD Unavailable Fred Frankel MD Primary Care Provider + [phone] Bre Subramanian [facility] N RN Unavailable [phone] Aleks Figueroa MD Unavailable [phone] Umm Silva MD Unavailable [phone] Allergies Active Allergy Reactions Criticality Noted Date Comments Latex, Natural Rubber Rash Low 06/01/2024 Melatonin Other (See Comments) 06/01/2024 vomiting Medications * This document contains information received from the source organization and may not represent a complete record from that organization. buPROPion (WELLBUTRIN XL) 150 mg 24 hr tablet Take 1 tablet (150 mg) by mouth daily. Active DULoxetine (CYMBALTA) 60 mg capsule Take 1 capsule (60 mg) by mouth at bedtime. Active metFORMIN (GLUCOPHAGE) 500 mg tablet Take 1 tablet (500 mg) by mouth 2 (two) times a day with meals. 8 Active metoprolol succinate 25 mg CSpX Take 25 mg by mouth daily. 0 Active prazosin (MINIPRESS) 1 mg capsule Take 1 capsule (1 mg) by mouth at bedtime. Active ondansetron (ZOFRAN-ODT) 4 mg disintegrating tablet Dissolve 2 tablets (8 mg) on the tongue every 8 (eight) hours as needed. Active promethazine (PHENERGAN) 12.5 mg tablet Take 1 tablet (12.5 mg) by mouth every 8 (eight) hours as needed. 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 She was evaluated by medical oncology, Dr. Frankel yesterday. After multidisciplinary discussion it is felt that station 4L may be a contaminant. On PET/CT imaging she does not appear to have a hypermetabolic 4L lymph node. Therefore after discussion with the multidisciplinary team she was staged as cT3 N2. She has received 1 cycle of induction chemoimmunotherapy. Plan: Dr. Figueroa has seen and evaluated Ms. Rios. We discussed at this time we recommend she complete her induction systemic therapy planned locally thereafter we can reevaluate her for surgical resection. She was instructed to obtain a copy of her cardiology stress test and fax results to us. Given her symptoms of dyspnea we will obtain a 6-minute walk test determine her surgical candidacy. Encounters * This document contains information received from the source organization and may not represent a complete record from that organization. 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) 06/25/2024 Orders Only [facility] [address]ldg, 9th Floor Elevator B [address] Brunilda Carlson, PROCUREMENT PROFESSIONAL LOGISTICS 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) 06/18/2024 Telephone [facility] [address]ldg, 9th Floor Elevator [address] [address] Bre Subramanian RN Nurse Navigation 06/03/2024 Telephone [facility] [address]ldg, 9th Floor [address] [address] Bre Subramanian, RN Nurse Navigation 06/02/2024 12:15 PM CDT - 06/02/2024 11:59 PM CDT Hospital Encounter [facility] [address]ldg, [address]st Fl[address] near Elevator [address] [address] Fred Frankel MD Bronk, Julianna K, MD Discharge Disposition: Home 06/02/2024 10:05 AM CDT - 06/02/2024 12:14 PM CDT Hospital Encounter [facility] - Pulmonology Lab [address]ld[address], 6th Floor Elevator [address] [address] Awa Cam Gladis, PROCUREMENT PROFESSIONAL LOGISTICS 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 Discharge Disposition: Home 06/02/2024 8:00 AM CDT Office Visit [facility] Main [facility], 9th Floor Elevator [address] [address] Aleks Figueroa MD 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) 06/02/2024 Telephone [facility] [address] [place] [address], th [place] [address] Suzanne Denis, RN 06/01/2024 8:10 PM CDT Ancillary Procedure Image Library [address] [place] [id number] Fred Frankel MD Cancer 06/01/2024 8:05 PM CDT Ancillary Procedure Image Library [address] [place] [address] Fred Frankel MD Cancer 06/01/2024 8:00 PM CDT Ancillary Procedure Image Library [address] [place] [address] Fred Frankel MD Cancer 06/01/2024 1:30 PM CDT Office Visit [facility] [address] [place] [address], [address] [place] [address] [place] [address] Fred Frankel MD 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) 06/01/2024 1:00 PM CDT NPR [facility] PATIENT ACCESS Fred Frankel MD 06/01/2024 Travel 05/19/2024 Telephone [facility] [address] [place] [address], th [place] [address] Suzanne Denis, RN 05/17/2024 8:00 PM CDT Ancillary Procedure Image Library [address] [place] [address] Fred Frankel MD Cancer 05/13/2024 8:40 PM CDT Ancillary Procedure Image [facility] [address] [place] [address] Fred Frankel MD Cancer 05/13/2024 8:35 PM CDT Ancillary Procedure Image [facility] [address] [place] [address] Fred Frankel MD Cancer 05/13/2024 8:30 PM CDT Ancillary Procedure Image Library [address] [place] [id number] Fred Frankel MD Cancer 05/13/2024 Lab Requisition [facility] Roel Amezcua MD Mody, Dina, MD 05/13/2024 Lab Requisition [facility] Roel Amezcua MD Ewton, April Anne, MD 05/12/2024 Telephone [facility] [address] [place] [address] Main [facility], 9th [place] [address] Suzanne Denis, MARGI 05/06/2024 Telephone [facility] [address] [place] [address], 9th [place] [address] Suzanne Denis, RN after 01/19/2024 Surgical History Surgery Date Site/Laterality Comments HYSTERECTOMY 1992 CHOLECYSTECTOMY 2008 Medical History Medical History Date Comments Squamous cell 05/29/2024 Lung nodule 01/2024 Arthritis 09/2009 Type 2 diabetes mellitus 09/2009 Depressive disorder 2002 Anxiety 2001 Family History Medical History Relation Name Comments Uterine cancer Sister adriane Relation Name Status Comments Sister adriane Social History Tobacco Use Types Packs/Day Years Used Date Smoking Tobacco: Former Cigarettes 1 50.7 0 09/01/1973 - 05/21/2024 Smokeless Tobacco: Never Tobacco Cessation:Counseling Given: Not Answered Alcohol Use Standard Drinks/Week Comments Not Currently 0 (1 standard drink = 0.6 oz pur e alcohol) Comments Unknown Sex and Gender Information Value Date Recorded Sex Assigned at Not on file Legal Sex Female 2:43 PM CDT Gender Identity Not on file Sexual Orientation Not on file Obstetrics History Last Filed Vital Signs Vital Sign Reading Time Taken Comments Blood Pressure 123/63 06/02/2024 1:01 PM CDT Pulse 80 06/02/2024 1:01 PM CDT Temperature 36.5 °C (97.7 °F) 06/02/2024 8:25 AM CD T Respiratory Rate 18 06/02/2024 1:01 PM CDT Oxygen Saturation 95% 06/02/2024 1:01 PM CDT Inhaled Oxygen Concentration - - Weight 62.7 kg (138 lb 3.7 oz) 06/02/2024 1:01 P M CDT Height 152.5 cm (5' 0.04") 06/01/2024 1:30 PM CD T Body Mass Index 26.96 06/01/2024 1:30 PM CDT Plan of Treatment Health Maintenance Due Date Last Done Comments Pneumococcal Vaccine: 50+ Years (1 of 2 - PCV) 974 COVID-19 Vaccine ( season) 2024 Influenza Vaccine (Season Ended) 2025 Medical Devices Implanted Type Area Refrigerated [employer] Device Identifier Shelf Expiration Date Model / Serial / Lot Mesh Mesh Vagina Screw-09/01/2013 Implanted:09/2013 (Quantity not on file) Screw Left: Knee Stent Stent Bilateral: Groin Procedures Procedure Name Priority Date/Time Associated Diagnosis Comments OSI PET CT SKULL TO MID THIGH Routine 07/07/2024 12:58 PM FORESTRY LABORER Cancer 6 MINUTE WALK TEST Routine 06/02/2024 12 :51 PM CDT 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 OSI PET CT SKULL TO MID THIGH Routine 05/13/2024 8:48 PM CDT Cancer OSI INTERVENTIONAL Routine 04/23/2024 9: 29 PM CDT Cancer OSI CHEST Routine 04/23/2024 8:49 PM CDT Cancer PATHOLOGY OUTSIDE INTERPRETATION Routine 04/23/2024 PATHOLOGY OUTSIDE INTERPRETATION Routine 04/23/[address] CHEST Routine 04/22/2024 8:48 PM CDT Cancer OSI CHEST Routine 02/13/2024 4:11 PM CDT Cancer OSI RIBS Routine 02/13/2024 4:11 PM CDT Cancer OSI SHOULDER Routine 02/13/2024 4:11 PM CDT Cancer after 01/19/2024 Results * OSI PET CT Skull to Mid Thigh (07/07/2024 12:58 PM FORESTRY LABORER) Only the most recent of2 resultswithin the time period is included. Narrative Systemgenerated, Documentation - 07/27/2024 12:58 PM FORESTRY LABORER Study acquired at another institution. For comparison only. No [facility] originated interpretation requested or available. us Fred Frankel MD IMG OUTSIDE IMAGE ORDERABLES Final Result * (ABNORMAL) 6 minute walk test (06/02/2024 12:51 PM CDT) 6MWD_Test 325.00(L) 332.39 - 610.39 m 06/02/2024 11:21 AM CDT [facility] Dist. final_Test 25.00 m 06/02/2024 11:21 AM CDT [facility] Laps_Test 5.00 06/02/2024 11:21 AM CDT [facility] Pauses_Test 0.00 06/02/2024 11:21 AM CDT [facility] SpO2min_Test 99.00 % 06/02/2024 11:21 AM CDT [facility] Ji35_Wegf 0.00 min 06/02/2024 11:21 AM CDT [facility] HRmax_Test 93.00 BPM 06/02/2024 11:21 AM CDT [facility] Lap Dist_Test 60.00 m 06/02/2024 11:21 AM CDT [facility] Dyspnea_Baseli ne 0.00 06/02/2024 11:21 AM CDT [facility] Exertion_Basel ine 0.00 06/02/2024 11:21 AM CDT [facility] SpO2_Baseline 100.00 % 06/02/2024 11:21 AM CDT [facility] SpO2min_Baseli ne 100.00 % 06/02/2024 11:21 AM CDT [facility] [id number] 0.00 min 06/02/2024 11:21 AM CDT [facility] HR_Baseline 79.00 1/min 06/02/2024 11:21 AM CDT [facility] HRmax_Baseline 80.00 BPM 06/02/2024 11:21 AM CDT [facility] BP Sys_Baseline 137.00 mmHg 06/02/2024 11:21 AM CDT [facility] BP Dia_Baseline 73.00 mmHg 06/02/2024 11:21 AM CDT [facility] Dyspnea_Recove ry 1.00 06/02/2024 11:21 AM CDT [facility] Exertion_Recov scarlett 1.00 06/02/2024 11:21 AM CDT [facility] SpO2_Recovery 100.00 % 06/02/2024 11:21 AM CDT [facility] SpO2min_Recove ry 100.00 % 06/02/2024 11:21 AM CDT [facility] [id number]_Pwiobpcc 0.00 min 06/02/2024 11:21 AM CDT [facility] HR_Recovery 83.00 1/min 06/02/2024 11:21 AM CDT [facility] HRmax_Recovery 93.00 BPM 06/02/2024 11:21 AM CDT [facility] BP Sys_Recovery 161.00 mmHg 06/02/2024 11:21 AM CDT [facility] BP Dia_Recovery 75.00 mmHg 06/02/2024 11:21 AM CDT [facility] 06/02/2024 10:2 7 AM CDT us Awa Cam APRN PFT ORDERABLES Final Result [facility] * OSI Interventional (04/23/2024 9:29 PM CDT) Narrative Systemgenerated, Documentation - 05/17/2024 9:29 PM CDT Study acquired at another institution. For comparison only. No [facility] originated interpretation requested or available. Fred Frankel MD [facility] OUTSIDE IMAGE ORDERABLES Final Result * OSI Chest (04/23/2024 8:49 PM CDT) Only the most recent of2 resultswithin the time period is included. Narrative Systemgenerated, Documentation - 05/13/2024 8:49 PM CDT Study acquired at another institution. For comparison only. No [facility] originated interpretation requested or available. Fred Frankel MD [facility] OUTSIDE IMAGE ORDERABLES Final Result * Pathology Outside Interpretation (04/23/2024) Only the most recent of2 resultswithin the time period is included. Materials Received Accession#, Stained, Block, Unstained Collected Received A. FMP-, 13 SS, 0 BLOCKS, 0 USS 04/23/2024 05/13/2024 05/13/2024 4:50 PM CDT [facility] Diagnosis Outside (FMP, 13 SS, 0 BLOCKS, 0 USS, collected on 04/23/2024): A. Lung, right upper lobe, EBUS-guided FNA: SQUAMOUS CARCINOMA (see comment) B. Lymph node, station 4L, EBUS-guided FNA: METASTATIC SQUAMOUS CARCINOMA C. Lymph node, subcarainal, EBUS-guided FNA: METASTATIC SQUAMOUS CARCINOMA 05/13/2024 4:50 PM CDT [facility] at 1650 CDT Comment The provided immunostains, performed on cell block with appropriate controls, show the tumor cells to be positive for p40 and negative for TTF-1. The findings support the above diagnosis. 05/13/2024 4:50 PM CDT [facility] Biomarker Block(s) Block for biomarker testing: ACB1 (> 300), CCB1 (50-300) Normal block: No 05/13/2024 4:50 PM CDT [facility] Disclaimer "Some tests reported here may have been developed and performance characteristics determined by [facility]. These tests have not been specifically cleared or approved by the U.S. Food and Drug Administration. If applicable, controls were reviewed and showed appropriate reactivity." 05/13/2024 4:50 PM CDT [facility] Tissue 04/23/2024 05/13/2024 9:2 3 AM CDT us Elaine Sandra MD LAB PATHOLOGY ORDERABLES Final R esult [facility] [place] [address], [place] * OSI CT Chest (04/22/2024 8:48 PM CDT) Narrative Systemgenerated, Documentation - 05/13/2024 8:49 PM CDT Study acquired at another institution. For comparison only. No [facility] originated interpretation requested or available. us Fred Frankel MD IMG OUTSIDE IMAGE ORDERABLES Final Result * OSI Shoulder (02/13/2024 4:11 PM CDT) Narrative Systemgenerated, Documentation - 06/01/2024 4:11 PM CDT Study acquired at another institution. For comparison only. No [facility] originated interpretation requested or available. us Fred Frankel MD IMG OUTSIDE IMAGE ORDERABLES Final Result * OSI Ribs (02/13/2024 4:11 PM CDT) Narrative Systemgenerated, Documentation - 06/01/2024 4:11 PM CDT Study acquired at another institution. For comparison only. No [facility] originated interpretation requested or available. Fred Frankel MD IMG OUTSIDE IMAGE ORDERABLES Final Result after 01/19/2024 Insurance [employer] MEDICARE PPO [employer] MEDICARE PPO Member Subscriber Plan / Payer (Ef fective 2022-Present) Name:Ashley Bañuelos Relation to Subscriber:Self Name:Ashley Bañuelos Payer ID:[id number] (NAIC) Type:Medicare Address: [place] [id number] Care Teams Camera Storage Clerk Relationship Specialty Start Date End Date Renny Stover MD PCP - External Follow Up A Thoracic Surgery 04/01/24 05/05/24 Andi Cassidy MD [address] [place] [address] PCP - External Follow Up A Hematology 05/06/24 Renny Stover MD PCP - External Follow Up B Thoracic Surgery 05/06/24 Fred Frankel MD [address] [place] [id number] [email or web address] PCP - General Thoracic Medicine 04/01/24 [place] [address] [place] [id number] [email or web address] Intake Nurse Navigator Nursing 05/06/24 06/01/24 Bre Subramanian RN [address] [place] [id number] [email or web address] Nurse Navigator Nursing 06/02/24 Aleks Figueroa MD [address] [place] [email or web address] Consulting Physician Thoracic Surgery 06/02/24 Umm Silva MD [address] [place] [id number] [email or web address] Consulting Physician Radiation Oncology 06/02/24
[2025-01-18 16:34] LABS: Absolute Eosinophils 0.2 K/uL (0-0.5); Absolute Lymphocytes (CBC) 0.7 K/uL (0.7-4.9); Absolute Monocytes 0.3 K/uL (0.1-1.3); Absolute Neutrophil 3.1 K/uL (1.8-8.0); Basophils % 0.6 % (0-1.3); Hematocrit 32.4 % (36.0-45.0); Hemoglobin 11.3 g/dL (12.0-15.0); Lymphocytes % 15.9 % (15.3-44.8); MCH 30.5 pg (27.0-35.0); MCHC 34.8 g/dL (32.0-36.0); MCV 87.8 fL (80-100); Monocytes % 7.6 % (3.3-12.3); Neutrophils % 70.9 % (41.7-73.7); Nucleated Red Blood Cells % 0.1 % (0-0); Platelets 190 thou/uL (152-406); RBC Red Blood Cell Count 3.69 M/uL (3.86-4.86); Red Cell Distribution Width 15.3 % (12.1-15.2)
[2025-01-18 16:52] LABS: Albumin 3.9 g/dL (3.4-5.0); Anion Gap 10.8 mEq/L (5.0-15.0); Bilirubin Total 0.3 mg/dL (0.2-1.0); Globulin 3.9 g/dL (2.3-3.5); Potassium 3.8 mEq/L (3.5-5.1); Protein, Total 7.8 g/dL (6.4-8.2); Troponin High Sensitivity 3.4 pg/mL (<58.9)
[2025-01-18] MEDS ORDERED: FAMOTIDINE 20 MG/2 ML VIAL IV ONE (17:34)
[2025-01-18] MEDS ORDERED: NA CHLORIDE 0.9% 1,000 ML ONE (17:35)
--- NOTE | 2025-01-18 18:23 | RAD REPORT ---
EXAMINATION: ONE VIEW CHEST XR CLINICAL INDICATION: Female, 69 years old.,Epigastric abdominal jamie TECHNIQUE: Frontal chest projection is submitted. Examination is limited by patient positioning and t echnique. COMPARISON: 02/13/2024 FINDINGS: The lungs are well inflated. Blunting of the right costophrenic angle could relate to atelectasis, ai rspace disease, or small effusion. No pneumothorax or other sizable effusion. The heart is normal in size. Mediastinal contours are unremarkable. IMPRESSION: Right basilar atelectasis, airspace disease, and/or small effusion.
[2025-01-18] MEDS ORDERED: TRAMADOL HCL 50 MG TAB ONE (18:56)
--- NOTE | 2025-01-18 20:36 | RAD REPORT ---
EXAMINATION: CT Abdomen Pelvis W Contrast CLINICAL INDICATION: Female, 69 years old. ABD PAIN TECHNIQUE: CT abdomen and pelvis was performed, after the administration of IV contrast, as per [facility]. Axial, sagittal and coronal reconstructions were obtained. One or more of the following dose reduction techniques were used: Automated exposure control, adjustment of the mA and k V according to patient size, and iterative reconstruction. Unless otherwise specified, incidental findings do not require dedicated imaging follow-up. COMPARISON: 07/24/2020. FINDINGS: LOWER CHEST: Trace right basal effusion with subsegmental atelectasis LIVER: Normal in size and contour. No focal lesion. BILIARY SYSTEM: Status post cholecystectomy. SPLEEN: Normal size. No focal lesion. PANCREAS: No mass, ductal dilation, or yvette-pancreatic fluid. ADRENALS: Normal; no mass. KIDNEYS: Normal size and contour. 3 mm right lower pole and left interpolar 2 to 3 mm nonobstructing calculi. Other calculi along the renal estefani probably vascular No hydronephrosis. URINARY BLADDER: Unremarkable. GASTROINTESTINAL TRACT: No evidence of free air, significant intra-abdominal free fluid, bowel obstru ction or abscess. APPENDIX: Normal appendix. LYMPH NODES: No lymphadenopathy. MUSCULOSKELETAL: No acute or suspicious osseous abnormality. ADDITIONAL FINDINGS: None. IMPRESSION: Nonobstructing bilateral renal calculi not exceeding 3 mm. Trace right basal pleural effusion with underlying subsegmental atelectasis. No other acute or concerning abnormalities seen in the abdomen or pelvis.
--- NOTE | 2025-01-18 20:47 | ER ---
Nurse's Notes [facility] Name: Ashley Bañuelos Age: 69 yrs Sex: Female : 1955 Arrival Date: 01/18/2025 Time: 15:45 Bed 15 Private MD: Diagnosis: Abdominal pain, unspecified;Anemia, unspecified Presentation: 01/18 15:51 Chief complaint: Patient states: RIGHT UPPER ABD PAIN X 2 MONTHS WORSE X 3 DAYS WORSE db TODAY. HX OF RIGHT LUNG SURGERY. RIGHT LUNG CANCER. COMPLETED CHEMO. 15:52 Coronavirus screen: Client denies travel out of the [place] in the last 14 days. At this db time, the client does not indicate any symptoms associated with coronavirus-19. Ebola Screen: Patient negative for fever greater than or equal to 101.5 degrees Fahrenheit, and additional compatible Ebola Virus Disease symptoms Patient denies exposure to infectious person. Patient denies travel to an Ebola-affected area in the 21 days before illness onset. No symptoms or risks identified at this time. Initial Sepsis Screen: Does the patient meet any 2 criteria? No. Patient's initial sepsis screen is negative. Does the patient have a suspected source of infection? No. Patient's initial sepsis screen is negative. Risk Assessment: Do you want to hurt yourself or someone else? Patient reports no desire to harm self or others. Onset of symptoms was January 15, 2025. 15:52 Method Of Arrival: Ambulatory db 15:52 Acuity: [place] 3 db Triage Assessment: 15:55 General: Appears in no apparent distress. comfortable, Behavior is calm, cooperative. db Pain: Complains of pain in right upper quadrant. Neuro: Level of Consciousness is awake, alert, obeys commands, Oriented to person, place, time, situation. Cardiovascular: Denies chest pain. Respiratory: Airway is patent Respiratory effort is even, unlabored, Respiratory pattern is regular, symmetrical. Historical: - Allergies: 15:54 Latex; db - PMHx: 15:54 angina pectoris; depressive disorder; diabetes mellitus; Kidney stone; Anxiety; LUNG db CANCER (left knee); - PSHx: 15:54 Cholecystectomy; hysterectomy; left knee; RIGHT LUNG (left knee); db - Immunization history:: Adult Immunizations unknown. - Infectious Disease History:: Denies. - Social history:: Smoking status: Patient/guardian denies using tobacco, Stopped _ months ago 9. Screenin:47 [facility] ED Fall Risk Assessment (Adult) History of falling in the last 3 months, kj2 including since admission No falls in past 3 months (0 pts) Confusion or Disorientation No (0 pts) Intoxicated or Sedated No (0 pts) Impaired Gait No (0 pts) Mobility Assist Device Used No (0 pt) Altered Elimination No (0 pt) Score/Fall Risk Level 0 - 2 = Low Risk Maintained a safe environment, Hourly rounding (assess needs \T\ fall precautionary measures) done. Abuse screen: Denies threats or abuse. Denies injuries from another. Nutritional screening: No deficits noted. Tuberculosis screening: No symptoms or risk factors identified. Assessment: 17:11 Reassessment: Pt is ambulatory with steady gait to restroom. Awaiting CT results. 17:45 Pain: Pain does not radiate. Pain began suddenly. kj2 17:46 Reassessment: Patient appears in no apparent distress at this time. Patient and/or kj2 family updated on plan of care and expected duration. Pain level reassessed. Patient is alert, oriented x 3, equal unlabored respirations, skin warm/dry/pink. 18:45 Reassessment: Patient appears in no apparent distress at this time. Patient and/or kj2 family updated on plan of care and expected duration. Pain level reassessed. Patient is alert, oriented x 3, equal unlabored respirations, skin warm/dry/pink. 19:45 Reassessment: Patient appears in no apparent distress at this time. Patient and/or kj2 family updated on plan of care and expected duration. Pain level reassessed. Patient is alert, oriented x 3, equal unlabored respirations, skin warm/dry/pink. 21:00 Reassessment: Patient appears in no apparent distress at this time. Patient and/or kj2 family updated on plan of care and expected duration. Pain level reassessed. Patient is alert, oriented x 3, equal unlabored respirations, skin warm/dry/pink. 21:19 Reassessment: Patient appears in no apparent distress at this time. Patient and/or kj2 family updated on plan of care and expected duration. Pain level reassessed. Patient is alert, oriented x 3, equal unlabored respirations, skin warm/dry/pink. 21:26 Reassessment: Patient appears in no apparent distress at this time. Patient and/or kj2 family updated on plan of care and expected duration. Pain level reassessed. Patient is alert, oriented x 3, equal unlabored respirations, skin warm/dry/pink. Vital Signs: 15:52 BP 130 / 68; Pulse 98; Resp 16; Temp 98.3; Pulse Ox 100% ; Weight 61.23 kg; Height 5 db ft. 1 in. ; 18:45 BP 132 / 62; Pulse 70; Resp 20; Pulse Ox 100% on R/A; kj2 19:45 BP 147 / 76; Pulse 92; Resp 20; Pulse Ox 100% ; kj2 21:00 BP 142 / 74; Pulse 90; Resp 18; Pulse Ox 100% on R/A; kj2 21:25 BP 138 / 78; Pulse 80; Resp 20; Temp 98; Pulse Ox 100% on R/A; kj2 15:52 Body Mass Index 25.51 (61.23 kg, 154.94 cm) db ED Course: 15:49 Patient arrived in ED. al6 15:54 Triage completed. db 15:55 Alfonzo Anaya DO is Attending Physician. ms3 15:55 Arm band placed on Patient placed in waiting room. db 16:26 CBC with Diff Sent. bc6 16:26 CMP Sent. bc6 16:26 Initial lab(s) drawn, by me, sent to lab. Inserted saline lock: 20 gauge in right bc6 antecubital area, using aseptic technique. Blood collected. Flushed with 10 mL NS. 16:58 XRAY Chest (1 view) In Process Unspecified. EDMS 17:45 Treva Morgan, RN is Primary Nurse. kj2 17:45 No provider procedures requiring assistance completed. Patient maintains SpO2 kj2 saturation greater than 95% on room air. 17:47 Patient has correct armband on for positive identification. Bed in low position. Call kj2 light in reach. Adult w/ patient. Provided Education on: call light. Client placed on continuous cardiac and pulse oximetry monitoring. NIBP monitoring applied. hod carrier on. 19:34 CT Abd/Pelvis - IV Contrast Only In Process Unspecified. EDMS 21:14 IV discontinued, intact, bleeding controlled, No redness/swelling at site. Pressure rk3 dressing applied. 21:26 IV discontinued, intact, bleeding controlled, No redness/swelling at site. Pressure kj2 dressing applied. Administered Medications: 17:46 Drug: Famotidine IVP 20 mg IVP once; dilute with 10 mL 0.9% NaCl; give over 2 minutes kj2 Route: IVP; Site: right antecubital; 17:46 Drug: NS 0.9% IV 1000 ml IV at 1 bolus Per protocol; to be given as a bolus over 60 kj2 minutes Route: IV; Rate: 1 bolus; Site: right antecubital; 18:59 Drug: traMADol PO 50 mg PO once Route: PO; kj2 21:23 Follow up: Response: No adverse reaction kj2 Medication: 17:48 VIS not applicable for this client. kj2 Outcome: 20:47 Discharge ordered by . ms3 21:23 Discharged to home ambulatory, kj2 21:23 Condition: stable 21:23 Discharge instructions given to patient, family, Instructed on Demonstrated understanding of instructions, follow-up care, 21:43 Patient left the ED. kj2 Signatures: Dispatcher [employer] EDMS Magy Sanders, RN RN ss Alfonzo Anaya DO DO ms3 Shandra Bailey, RN RN db Estelita Murillo bc6 Treva Morgan RN RN kj2 Anna Ibarra al6 Charles Rios rk3 Corrections: (The following items were deleted from the chart) 15:54 15:51 Chief complaint: Patient states: RIGHT UPPER ABD PAIN X 2 MONTHS db db 15:55 15:51 Chief complaint: Patient states: RIGHT UPPER ABD PAIN X 2 MONTHS WORSE X 3 DAYS db WORSE TODAY db 16:32 16:26 Troponin High Sensitivity+C.LAB.BRZ drawn and sent. 6 EDNE
--- NOTE | 2025-01-18 20:47 | EDPHYS ---
Physician Documentation [facility] Name: Ashley Bañuelos Age: 69 yrs Sex: Female : 1955 Arrival Date: 01/18/2025 Time: 15:45 Bed 15 Private MD: ED Physician Alfonzo Anaya HPI: 01/18 16:07 This 69 yrs old Female presents to ER via Ambulatory with complaints of Abdominal Pain. ms3 16:07 69-year-old female with past medical history of angina pectoris, depression, diabetes, ms3 kidney stone, anxiety, lung cancer presents to the emergency department for right upper quadrant/epigastric abdominal pain. Patient states the pain is intermittent and described as being sharp. Patient states the pain is currently mild. Patient denies any alleviating or inciting factors.. Historical: - Allergies: 15:54 Latex; db - PMHx: 15:54 angina pectoris; depressive disorder; diabetes mellitus; Kidney stone; Anxiety; LUNG db CANCER (left knee); - PSHx: 15:54 Cholecystectomy; hysterectomy; left knee; RIGHT LUNG (left knee); db - Immunization history:: Adult Immunizations unknown. - Infectious Disease History:: Denies. - Social history:: Smoking status: Patient/guardian denies using tobacco, Stopped _ months ago 9. ROS: 16:07 Constitutional: Negative for fever, and chills. Cardiovascular: Negative for chest ms3 pain, and palpitations. Respiratory: Negative for shortness of breath, cough, wheezing, and pleuritic chest pain, 16:07 MS/Extremity: Negative for injury and deformity, Skin: Negative for injury, rash, and discoloration, 16:07 Abdomen/GI: Positive for abdominal pain, Exam: 16:07 Constitutional: This is a well developed, well nourished patient who is awake, alert, ms3 and in no acute distress. Cardiovascular: Regular rate and rhythm with a normal S1 and S2. No gallops, murmurs, or rubs. Normal PMI, no JVD. No pulse deficits. Respiratory: Lungs have equal breath sounds bilaterally, clear to auscultation and percussion. No rales, rhonchi or wheezes noted. No increased work of breathing, no retractions or nasal flaring. 16:07 Abdomen/GI: Inspection: abdomen appears normal, Bowel sounds: normal, Palpation: moderate abdominal tenderness, in the epigastric area and right upper quadrant, 20:41 ECG was reviewed by the Attending Physician. ms3 Vital Signs: 15:52 BP 130 / 68; Pulse 98; Resp 16; Temp 98.3; Pulse Ox 100% ; Weight 61.23 kg; Height 5 db ft. 1 in. ; 18:45 BP 132 / 62; Pulse 70; Resp 20; Pulse Ox 100% on R/A; kj2 19:45 BP 147 / 76; Pulse 92; Resp 20; Pulse Ox 100% ; kj2 21:00 BP 142 / 74; Pulse 90; Resp 18; Pulse Ox 100% on R/A; kj2 21:25 BP 138 / 78; Pulse 80; Resp 20; Temp 98; Pulse Ox 100% on R/A; kj2 15:52 Body Mass Index 25.51 (61.23 kg, 154.94 cm) db MDM: 16:07 Differential diagnosis: myocardia ischemia or infarction, non-specific abd pain, ms3 pancreatitis. 16:16 Medical Screening Exam initiated ms3 20:47 Data reviewed: vital signs, nurses notes, lab test result(s), EKG, radiologic studies, ms3 and as a result, I will discharge patient. I considered the following discharge prescriptions or medication management in the emergency department Medications were administered in the Emergency Department. See MAR. Independent interpretation of the following test(s) in the Emergency Department EKG: See my EKG interpretation above. Counseling: I had a detailed discussion with the patient and/or guardian regarding the historical points, exam findings, and any diagnostic results supporting the discharge/admit diagnosis, lab results, radiology results, the need for outpatient follow up, to return to the emergency department if symptoms worsen or persist or if there are any questions or concerns that arise at home. Special discussion: Based on the patient's Hx, exam, and Dx evaluation, there is no indication for emergent surgery or inpatient Tx. It is understood by the patient/guardian that if the Sx's persist or worsen they need to return immediately for re-evaluation. ED course: On reevaluation patient symptoms improved, patient is alert and orient x 4, no apparent distress, nontoxic-appearing, speaking full sentences. Discussed mild anemia and bilateral renal stones with the patient. Patient to follow-up with primary care physician in 2 to 3 days. All questions were answered. Return precautions discussed include worsening symptoms, or any other concerns. 01/18 15:55 Order name: CBC with Diff; Complete Time: 18:28 ms3 01/18 15:55 Order name: CMP; Complete Time: 18:28 ms3 01/18 15:55 Order name: Lipase; Complete Time: 18:28 ms3 01/18 16:32 Order name: Troponin High Sensitivity; Complete Time: 18:28 EDMS 01/18 16:09 Order name: XRAY Chest (1 view); Complete Time: 18:28 ms3 01/18 18:49 Order name: CT Abd/Pelvis - IV Contrast Only; Complete Time: 20:38 ms3 01/18 15:55 Order name: IV Saline Lock; Complete Time: 16:26 ms3 01/18 15:55 Order name: Labs collected and sent; Complete Time: 16:26 ms3 01/18 16:09 Order name: Cardiac monitoring; Complete Time: 16:27 ms3 01/18 16:09 Order name: EKG - Nurse/Tech; Complete Time: 16:26 ms3 01/18 16:09 Order name: IV Saline Lock; Complete Time: 16:26 ms3 01/18 16:09 Order name: Labs collected and sent; Complete Time: 16:26 ms3 01/18 16:09 Order name: O2 Per Protocol; Complete Time: 16:27 ms3 01/18 16:09 Order name: O2 Sat Monitoring; Complete Time: 16:27 ms3 EC:41 Rate is 90 beats/min. Rhythm is regular. QRS [place] is Normal. [place] interval is normal. QRS ms3 interval is normal. Clinical impression: Normal ECG. Interpreted by me. Reviewed by me. Administered Medications: 17:46 Drug: Famotidine IVP 20 mg IVP once; dilute with 10 mL 0.9% NaCl; give over 2 minutes kj2 Route: IVP; Site: right antecubital; 17:46 Drug: NS 0.9% IV 1000 ml IV at 1 bolus Per protocol; to be given as a bolus over 60 kj2 minutes Route: IV; Rate: 1 bolus; Site: right antecubital; 18:59 Drug: traMADol PO 50 mg PO once Route: PO; kj2 21:23 Follow up: Response: No adverse reaction kj2 Disposition Summary: 01/18/25 20:47 Discharge Ordered Notes: Location: Home ms3 Condition: Stable ms3 Diagnosis - Abdominal pain, unspecified ms3 - Anemia, unspecified ms3 Followup: ms3 - With: Private Physician - When: 2 - 3 days - Reason: Recheck today's complaints Discharge Instructions: - Discharge Summary Sheet ms3 - Abdominal Pain, Adult ms3 - Anemia ms3 Forms: - Medication Reconciliation Form ms3 - Antibiotic Education ms3 - Prescription Opioid Use ms3 - Patient Portal Instructions ms3 - Leadership Thank You Letter ms3 Signatures: Dispatcher [employer] EDMS Alfonzo Anaya, DO ms3 Shandra Bailey, RN RN db Treva Morgan RN RN kj2 Corrections: (The following items were deleted from the chart) 15:56 15:56 CBC+H.LAB.BRZ ordered. EDMS EDMS 15:56 15:56 COMPREHENSIVE METABOLIC PANEL+C.LAB.BRZ ordered. EDMS EDMS 15:56 15:56 LIPASE+C.LAB.BRZ ordered. EDMS EDMS 16:10 16:09 Chest Single View+RAD.RAD.BRZ ordered. EDMS EDMS 16:32 16:09 Troponin High Sensitivity+C.LAB.BRZ ordered. EDMS EDMS
[2025-01-18 21:56] VITALS: O2SAT 100
[2025-01-18 22:10] VITALS: BP 138/78; TEMP 98
== END 2025-01-18 21:43 | disposition home or self-care (01) ==
LOC: ER 15:45
DX: R10.11 Right upper quadrant pain (principal); D64.9 Anemia, unspecified; Z87.442 Personal history of urinary calculi; Z85.118 Personal history of other malignant neoplasm of bronchus and lung
CPT/HCPCS: 93005 ×2; 85025; 36415; 84484; 83690; 80053; 74177; 71045; 96374; 99285; Q9967; J7030

== ENCOUNTER 2025-04-17 11:00 | Inpatient (IN) | payer OTHER ==
--- OUTSIDE RECORDS SUMMARY | 2025-04-17 11:09 | XMS REPORT | Clinical Summary ---
Author Name Unknown Organization [facility] Address [address] [place] [address] Care Team Providers Care Mobile Marketing Specialist Name Role Phone Renny Stover MD Unavailable [phone] Suzanne Denis RN Unavailable [phone] Andi Cassidy MD Unavailable Renny Stover MD Unavailable [phone] Fred Frankel MD Primary Care Provider [phone] Bre Subramanian [facility] N RN Unavailable [phone] Aleks Figueroa MD Unavailable [phone] Umm Silva MD Unavailable [phone] Allergies Active Allergy Reactions Criticality Noted Date [...] Department Care Team Description 07/27/2024 8:00 PM TAX EXAMINER Ancillary Procedure Image Library [address] [place] [address] Frde Frankel MD Cancer 07/27/2024 Telephone [facility] [address], 9th [place] [address] Bre Subramanian, RN Nurse Navigation 07/26/2024 Telephone [facility] [address], 9th [place] [address] Bre Subramanian, RN Nurse Navigation 07/20/2024 Orders Only [facility] [address]ld[address], 9th [place] [address] Brunilda Carlson, REBA 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) 06/25/2024 Orders Only [facility] [address]ld[address], 9th [place] [address] Brunilda Carlson, PRODUCTION ASSISTANT 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) 06/18/2024 Telephone [facility] [address]ld[address], 9th [place] [address] Bre Subramanian RN Nurse Navigation 06/03/2024 Telephone [facility] [address]ld[address], 9th [place] [address] Bre Subramanian, RN Nurse Navigation 06/02/2024 12:15 PM CDT - 06/02/2024 11:59 PM CDT Hospital Encounter [facility] [address], [address] [place] [address] Fred Frankel MD Bronk, Julianna K, MD Discharge Disposition: Home 06/02/2024 10:05 AM CDT - 06/02/2024 12:14 PM CDT Hospital Encounter [facility] [address], 6th [place] [address] Awa Cam Gladis, PRODUCTION ASSISTANT 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 Discharge Disposition: Home 06/02/2024 8:00 AM CDT Office Visit [facility] Main [facility], 9th [place] [address] Aleks Figueroa MD 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) 06/02/2024 Telephone [facility] [address] [place] [address], [place] [address] Suzanne Denis, RN 06/01/2024 8:10 PM CDT Ancillary Procedure Image Library [address] [place] [address] Fred Frankel MD Cancer 06/01/2024 8:05 PM CDT Ancillary Procedure Image Library [address] [place] [address] Fred Frankel MD Cancer 06/01/2024 8:00 PM CDT Ancillary Procedure Image [facility] [address] [place] [address] Fred Frankel MD Cancer 06/01/2024 1:30 PM CDT Office Visit [facility] [address] [place] [address], [address] [place] [address] [place] [address] Fred Frankel MD 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) 06/01/2024 1:00 PM CDT NPR [facility] PATIENT ACCESS Fred Frankel MD 06/01/2024 Travel 05/19/2024 Telephone [facility] [address] [place] [address], th [place] [address] Suzanne Denis, RN 05/17/2024 8:00 PM CDT Ancillary Procedure Image Library [address] [place] [address] Fred Frankel MD Cancer 05/13/2024 8:40 PM CDT Ancillary Procedure Image [facility] [address] [place] [address] Fred Frankel MD Cancer 05/13/2024 8:35 PM CDT Ancillary Procedure Image [facility] [address] [place] [address] Fred Frankel MD Cancer 05/13/2024 8:30 PM CDT Ancillary Procedure Image Library [address] [place] [address] Fred Frankel MD Cancer 05/13/2024 Lab Requisition [facility] Roel Amezcua MD Mody, Dina, MD 05/13/2024 Lab Requisition [facility] Roel Amezcua MD Ewton, April Anne, MD 05/12/2024 Telephone [facility] [address] [place] [address] Main [facility], 9th [place] [address] Suzanne Denis, MARGI 05/06/2024 Telephone [facility] [address] [place] [address], 9th [place] [address] Suzanne Denis, RN after 04/17/2024 Surgical History Surgery Date Site/Laterality Comments HYSTERECTOMY [...] of 2 - PCV) 974 COVID-19 Vaccine (2023- season) 2024 Influenza Vaccine (#1) 2025 Medical Devices Implanted Type Area Counter Installer Device Identifier Shelf Expiration Date Model / Serial / Lot Mesh Mesh Vagina Screw-09/01/2013 Implanted:09/2013 (Quantity not on file) Screw Left: Knee Stent Stent Bilateral: Groin Procedures Procedure Name Priority Date/Time Associated Diagnosis Comments OSI PET CT SKULL TO MID THIGH Routine 07/07/2024 12:58 PM TAX EXAMINER Cancer 6 MINUTE WALK TEST Routine 06/02/2024 [...] CHEST Routine 04/22/2024 8:48 PM CDT Cancer after 04/17/2024 Results * OSI PET CT Skull to Mid Thigh (07/07/2024 12:58 PM TAX EXAMINER) Only the most recent of2 resultswithin the time period is included. Narrative Systemgenerated, Documentation - 07/27/2024 12:58 PM TAX EXAMINER Study acquired at another institution. For comparison [...] 99.00 % 06/02/2024 11:21 AM CDT SENTRYSUITE Po13_Pimm 0.00 min 06/02/2024 11:21 AM CDT SENTRYSUITE HRmax_Test 93.00 BPM 06/02/2024 11:21 AM CDT SENTR[facility]UITE Lap Dist_Test 60.00 m 06/02/2024 11:21 AM CDT SENTRYSUITE Dyspnea_Baseli ne 0.00 06/02/2024 11:21 AM CDT SENTRYSUITE Exertion_Basel ine 0.00 06/02/2024 11:21 AM CDT SENTRYSUITE SpO2_Baseline 100.00 % 06/02/2024 11:21 AM CDT SENTRYSUITE SpO2min_Baseli ne 100.00 % 06/02/2024 11:21 AM CDT SENTRYSUITE Zc79_Cacdvzjk 0.00 min 06/02/2024 11:21 AM CDT SENTRYSUITE [...] 100.00 % 06/02/2024 11:21 AM CDT SENTRYSUITE Zg13_Phsjchcq 0.00 min 06/02/2024 11:21 AM CDT SENTRYSUITE [...] * OSI Chest (04/23/2024 8:49 PM CDT) Narrative Systemgenerated, Documentation - 05/13/2024 8:49 PM CDT Study acquired at another institution. For comparison only. No [facility] originated interpretation requested or available. us Fred Frankel MD IMG OUTSIDE IMAGE ORDERABLES Final Result * Pathology Outside Interpretation (04/23/2024) Only the most recent of2 resultswithin the time period is included. Materials Received Accession#, Stained, Block, Unstained Collected Received [facility]-, 13 SS, 0 BLOCKS, 0 USS 04/23/2024 05/13/2024 05/13/2024 4:50 PM CDT [facility] [place] [facility] Diagnosis Outside (FM, 13 SS, 0 BLOCKS, 0 USS, collected on 04/23/2024): A. Lung, right upper lobe, EBUS-guided FNA: SQUAMOUS CARCINOMA (see comment) B. Lymph node, station 4L, EBUS-guided FNA: METASTATIC SQUAMOUS CARCINOMA C. Lymph node, subcarainal, EBUS-guided FNA: METASTATIC SQUAMOUS CARCINOMA 05/13/2024 4:50 PM CDT [facility] at 1650 CDT Comment The provided immunostains, performed on cell block with appropriate controls, show the tumor cells to be positive for p40 and negative for TTF-1. The findings support the above diagnosis. 05/13/2024 4:50 PM CDT [facility] Biomarker Block(s) Block for biomarker testing: ACB1 (> 300), CCB1 (50-300) Normal block: No 05/13/2024 4:50 PM CDT [facility] Disclaimer "Some tests reported here may have been developed and performance characteristics determined by [facility] Pathology and Laboratory Medicine. These tests have not been specifically cleared or approved by the U.S. Food and Drug Administration. If applicable, controls were reviewed and showed appropriate reactivity." 05/13/2024 4:50 PM CDT [facility] Tissue 04/23/2024 05/13/2024 9:2 3 AM CDT us Elaine Sandra MD LAB PATHOLOGY ORDERABLES Final R esult [facility] [address] [place] [address], * OSI CT Chest (04/22/2024 8:48 PM CDT) Narrative Systemgenerated, Documentation - 05/13/2024 8:49 PM CDT Study acquired at another institution. For comparison only. No [facility] originated interpretation requested or available. us Fred Frankel MD IMG OUTSIDE IMAGE ORDERABLES Final Result after 04/17/2024 Insurance [employer] MEDICARE PPO [employer] MEDICARE PPO Advance Directives * Full Code (Latest Code Status on File) Date Activated Date Inactivated Comments 01/19/2025 11:55 AM Update based on Advanced Directive Documentation Care Teams Mobile Marketing Specialist Relationship Specialty Start Date End Date Renny Stover MD PCP - External Follow Up A Thoracic Surgery 04/01/24 05/05/24 Andi Cassidy MD [address] [place] [id number] PCP - External Follow Up A Hematology 05/06/24 Renny Stover MD PCP - External Follow Up B Thoracic Surgery 05/06/24 Fred Frankel MD [address] [place] [phone] [email or web address] PCP - General Thoracic Medicine 04/01/24 Suzanne Denis RN [address] [place] [phone] [email or web address] Intake Nurse Navigator Nursing 05/06/24 06/01/24 Bre Subramanian RN [address] [place] [phone] [email or web address] Nurse Navigator Nursing 06/02/24 5 Aleks Figueroa MD [address] [place] [phone] [email or web address] Consulting Physician Thoracic Surgery 06/02/24 Umm Silva MD [address] [place] [phone] [email or web address] Consulting Physician Radiation Oncology 06/02/24
[2025-04-17 11:41] LABS: Absolute Lymphocytes (CBC) 1.1 K/uL (0.7-4.9); Hematocrit 31.9 % (36.0-45.0); Hemoglobin 10.7 g/dL (12.0-15.0); MCH 29.3 pg (27.0-35.0); MCHC 33.7 g/dL (32.0-36.0); MCV 86.9 fL (80-100); MPV 7.0 fL (7.6-11.3); Nucleated RBC Absolute Count 0.0 (0-0); Nucleated Red Blood Cells % 0.1 % (0-0); RBC Red Blood Cell Count 3.67 M/uL (3.86-4.86); White Blood Count 4.40 thou/uL (4.3-10.9)
[2025-04-17 12:20] LABS: Sqamous Epithelial <5 /HPF (None Seen); Urine Culture Reflex Order REFLEXED; Urine Microscopic Reflex YN ORDER UMIC
[2025-04-17 12:21] LABS: Urine WBC Clump Rare /HPF (None Seen)
[2025-04-17 12:28] LABS: ALT/SGPT 18 U/L (13-56); AST/SGOT 27 U/L (15-37); Albumin 3.6 g/dL (3.4-5.0); Albumin/Globulin Ratio 1.1 (1.1-1.8); Alkaline Phosphatase 89 U/L (45-117); Anion Gap 15.0 mEq/L (5.0-15.0); BUN Blood Urea Nitrogen 14 mg/dL (7-18); Globulin 3.4 g/dL (2.3-3.5); Glucose Level 63 mg/dL (74-106); Magnesium 1.7 mg/dL (1.6-2.4); Potassium 4.0 mEq/L (3.5-5.1); Troponin High Sensitivity 7.4 pg/mL (<58.9)
[2025-04-17] MEDS ORDERED: NA CHLORIDE 0.9% 0 ML ONE (12:36)
[2025-04-17 12:37] LABS: Bilirubin Indirect, Calculated 0.3 mg/dL (0.2-0.8)
--- NOTE | 2025-04-17 12:39 | ER ---
Nurse's Notes [facility] Name: Ashley Bañuelos Age: 70 yrs Sex: Female : 1955 Arrival Date: 04/17/2025 Time: 11:00 Bed 13 Private MD: Diagnosis: Altered mental status, unspecified;Adult failure to thrive Presentation: 04/17 11:15 Chief complaint: Patient's son or daughter states: patient was recently discharged from ap3 another facility for "seeing bugs" and not sleeping. son reports patient is continuing to not sleep, not eat much and not drink water. Coronavirus screen: At this time, the client does not indicate any symptoms associated with coronavirus-19. Ebola Screen: No symptoms or risks identified at this time. Initial Sepsis Screen: Does the patient meet any 2 criteria? HR > 90 bpm. Does the patient have a suspected source of infection? No. Patient's initial sepsis screen is negative. Risk Assessment: Do you want to hurt yourself or someone else? Patient reports no desire to harm self or others. Onset of symptoms is unknown. 11:15 Method Of Arrival: Wheelchair ap3 11:15 Acuity: [place] 2 ap3 Triage Assessment: 11:18 General: Appears comfortable, Behavior is cooperative. Pain: Denies pain. Neuro: Level ap3 of Consciousness is awake, alert, obeys commands, Oriented to person, Appropriate for age Speech is normal. Cardiovascular: Patient's skin is warm and dry. Respiratory: Airway is patent Respiratory effort is even, unlabored, Respiratory pattern is regular, symmetrical. GI: Parent/caregiver reports the patient having. Historical: - Allergies: 11:18 Latex; ap3 - PMHx: 11:18 angina pectoris; Anxiety; depressive disorder; diabetes mellitus; Kidney stone; Lung ap3 Cancer (left knee); - PSHx: 11:18 Cholecystectomy; hysterectomy; left knee; RIGHT LUNG (ne); ap3 - Immunization history:: Adult Immunizations up to date. - Infectious Disease History:: Denies. - Social history:: Smoking status: Patient/guardian denies using tobacco, the patient reports quitting approximately 1 years ago. Screenin:19 Abuse screen: Denies threats or abuse. Nutritional screening: No deficits noted. ap3 Tuberculosis screening: No symptoms or risk factors identified. 14:12 [facility] ED Fall Risk Assessment (Adult) History of falling in the last 3 months, db including since admission Yes- single mechanical fall (1 pt) Confusion or Disorientation Yes (5 pts) Intoxicated or Sedated No (0 pts) Impaired Gait Yes (1 pt) Mobility Assist Device Used Yes (1 pt) Altered Elimination No (0 pt) Score/Fall Risk Level 3 or more points = High Risk Oriented to surroundings, Maintained a safe environment, Hourly rounding (assess needs \\T\\ fall precautionary measures) done, Utilized family, sitter, or virtual nail sticker as indicated. Assessment: 11:40 Reassessment: Patient appears in no apparent distress at this time. Patient and/or db family updated on plan of care and expected duration. Pain level reassessed. General: Appears in no apparent distress. comfortable, Behavior is calm, cooperative. Neuro: Level of Consciousness is awake, alert, obeys commands, confused, Oriented to person. Respiratory: Airway is patent Respiratory effort is even, unlabored, Respiratory pattern is regular, symmetrical. 11:50 Reassessment: PT AMBULATORY WITH ASSISTANCE FROM FAMILY TO RESTROOM FOR URINE SPECIMEN. db 13:30 Reassessment: Patient appears in no apparent distress at this time. No changes from db previously documented assessment. Patient and/or family updated on plan of care and expected duration. Pain level reassessed. Vital Signs: 11:15 BP 133 / 65; Pulse 98; Resp 18; Temp 98.5; Pulse Ox 98.5% ; Weight 61.23 kg; ap3 12:00 BP 102 / 59; Pulse 102; Resp 18; Pulse Ox 96% ; db 13:30 BP 105 / 62; Pulse 96; Resp 18; Pulse Ox 97% ; db ED Course: 11:05 Patient arrived in ED. al6 11:06 Kena Wolff PA-C is PHCP. sb4 11:06 Henry Villagran MD is Attending Physician. sb4 11:10 Shandra Bailey, MARGI is Primary Nurse. db 11:18 Triage completed. ap3 11:19 Arm band placed on right wrist. ap3 11:19 Patient has correct armband on for positive identification. Bed in low position. Call ap3 light in reach. Side rails up X2. Adult w/ patient. 11:30 Initial lab(s) drawn, by me, sent to lab. EKG done, reviewed by Kena Wolff PA-C. db Inserted saline lock: 20 gauge in right forearm, using aseptic technique. Blood collected. Flushed with 10 mL NS. 11:58 Urine collected: clean catch specimen, antoni[place] colored. db 12:39 Prince Solano MD is Hospitalizing Provider. sb4 14:12 Provided Education on: ADMISSION. Client placed on continuous cardiac and pulse db oximetry monitoring. NIBP monitoring applied. blaster helper on. Pulse ox on. NIBP on. Warm blanket given. Pillow given. 14:12 No provider procedures requiring assistance completed. Patient admitted, IV remains in db place. Administered Medications: 12:40 CANCELLED (Physician Discretion): ns 0.9% 1000 ml IV at 1000 ml once; to be given as a sb4 bolus over 60 minutes 12:51 Drug: D5-1/2 NS IV 1000 ml IV at bolus once; 1000 mL bolus; followed by 125 mL/hr db continuous Route: IV; Rate: bolus; Site: right forearm; 14:15 Follow up: Response: No adverse reaction db Medication: 14:12 VIS not applicable for this client. db Outcome: 12:39 Decision to Hospitalize by Provider. sb4 14:12 Patient left the ED. jl7 14:12 Admitted to Med/surg room 222, db 14:12 Condition: stable 14:12 Instructed on the need for admit, Signatures: Lilia Man RN RN [email or web address] Ashlie Celis RN RN [email or web address] Shandra Bailey RN RN Kena Mitchell PA-C PA-C sb4 Anna [email or web address]
--- NOTE | 2025-04-17 12:40 | EDPHYS ---
Physician Documentation [facility] Name: Ashley Bañuelos Age: 70 yrs Sex: Female : 1955 Arrival Date: 04/17/2025 Time: 11:00 Bed 13 Private MD: ED Physician Henry Villagran HPI: 04/17 11:32 This 70 yrs old Female presents to ER via Wheelchair with complaints of Altered Mental sb4 Status. 11:32 Patient presents today with son with concerns of altered mental status and failure to sb4 thrive. Patient was recently admitted at [facility] for 1 week for this, slightly improved and was discharged home with Seroquel to assist with sleep. Son states that she has still had minimal sleep and has been hallucinating as a result. She is seeing bugs and grabbing at things that are not there. [facility] told her that she was slightly dehydrated and had a mild UTI did treat her with IV fluids and antibiotics. She had a plethora of tests done including labs, CT scans, and MRIs without any official diagnosis. They ruled out Alzheimer's or any other metabolic causes, believed that her hallucinations were secondary to her insomnia. Historical: - Allergies: 11:18 Latex; ap3 - PMHx: 11:18 angina pectoris; Anxiety; depressive disorder; diabetes mellitus; Kidney stone; Lung ap3 Cancer (left knee); - PSHx: 11:18 Cholecystectomy; hysterectomy; left knee; RIGHT LUNG (ne); ap3 - Immunization history:: Adult Immunizations up to date. - Infectious Disease History:: Denies. - Social history:: Smoking status: Patient/guardian denies using tobacco, the patient reports quitting approximately 1 years ago. ROS: 11:32 Cardiovascular: Negative for chest pain, palpitations, and edema, sb4 11:32 Constitutional: Positive for poor PO intake, 11:32 Psych: Positive for visual hallucinations, 11:32 All other systems are negative, Exam: 11:32 Head/Face: Normocephalic, atraumatic. Eyes: Extra-ocular motions intact. Periorbital sb4 areas with no swelling, redness, or edema. ENT: Mucous membranes moist. Cardiovascular: Regular rate and rhythm with a normal S1 and S2. Respiratory: No increased work of breathing, no retractions or nasal flaring. Abdomen/GI: Soft, non-tender, no distension. Skin: Warm, dry with normal turgor. Normal color with no rashes, no lesions, and no evidence of cellulitis. 11:32 Constitutional: The patient appears alert, awake, Confused, sleepy Vital Signs: 11:15 BP 133 / 65; Pulse 98; Resp 18; Temp 98.5; Pulse Ox 98.5% ; Weight 61.23 kg; ap3 12:00 BP 102 / 59; Pulse 102; Resp 18; Pulse Ox 96% ; db 13:30 BP 105 / 62; Pulse 96; Resp 18; Pulse Ox 97% ; db MDM: 11:06 Medical Screening Exam initiated sb4 11:35 Differential Diagnosis: electrolyte abnormality, hypoglycemia, UTI, volume depletion. sb4 12:38 Data reviewed: vital signs, nurses notes, lab test result(s), EKG, and as a result, I sb4 will admit patient. Consideration of Admission/Observation Patient was admitted/placed on observation. Counseling: I had a detailed discussion with the patient and/or guardian regarding the historical points, exam findings, and any diagnostic results supporting the discharge/admit diagnosis, lab results, the need for further work-up and treatment in the hospital. 04/17 11:24 Order name: Basic Metabolic Panel; Complete Time: 12:38 [facility] 04/17 11:24 Order name: CBC with Diff; Complete Time: 11:54 [facility] 04/17 11:24 Order name: Hepatic Function; Complete Time: 12:38 [facility] 04/17 11:24 Order name: Magnesium; Complete Time: 12:38 [facility] 04/17 11:24 Order name: Troponin High Sensitivity; Complete Time: 12:38 [facility] 04/17 11:24 Order name: UDS sb 04/17 11:24 Order name: UA Rfx Jewel Cult if indicated; Complete Time: 12:27 [facility] 04/17 12:26 Order name: Urine Culture [facility] 04/17 13:01 Order name: Lactate w/ 2H reflex if indic. EDPA 04/17 13:01 Order name: Magnesium EDPA 04/17 13:01 Order name: Phosphorus EDPA 04/17 13:01 Order name: Protime (+INR) EDPA 04/17 13:01 Order name: PTT, Activated Partial Thromb EDPA 04/17 13:01 Order name: Thyroid Stimulating Hormone EDPA 04/17 13:01 Order name: Basic Metabolic Panel EDMS 04/17 13:01 Order name: Basic Metabolic Panel EDMS 04/17 13:01 Order name: CBC with Automated Diff EDMS 04/17 13:01 Order name: CBC with Automated Diff EDMS 04/17 13:06 Order name: T3 Free EDMS 04/17 13:06 Order name: T4 Free EDMS 04/17 11:24 Order name: Cardiac monitoring; Complete Time: 12:03 sb4 04/17 11:24 Order name: EKG - Nurse/Tech; Complete Time: 12:03 sb4 04/17 11:24 Order name: IV Saline Lock; Complete Time: 12:03 sb4 04/17 11:24 Order name: Labs collected and sent; Complete Time: 12:03 sb4 04/17 11:24 Order name: O2 Per Protocol; Complete Time: 12:03 sb4 04/17 11:24 Order name: O2 Sat Monitoring; Complete Time: 12:03 sb4 EC:56 Rate is 97 beats/min. Rhythm is regular, Normal Sinus Rhythm. [place] interval is normal at sb4 156 msec. QRS interval is normal at 60 msec. QT interval is prolonged. Interpreted by me. Reviewed by me. Administered Medications: 12:40 CANCELLED (Physician Discretion): ns 0.9% 1000 ml IV at 1000 ml once; to be given as a sb4 bolus over 60 minutes 12:51 Drug: D5-1/2 NS IV 1000 ml IV at bolus once; 1000 mL bolus; followed by 125 mL/hr db continuous Route: IV; Rate: bolus; Site: right forearm; 14:15 Follow up: Response: No adverse reaction db Disposition: 17:00 Co-signature as Attending Physician, Henry Villagran MD I reviewed the patient's care rn provided by the Advanced Practice Provider and agree with the diagnosis and treatment plan. Disposition Summary: 04/17/25 12:39 Hospitalization Ordered Notes: Hospitalization Status: Inpatient Admission sb4 Provider: Prince sweta Solano Location: Telemetry/[facility] (Inpatient) sb4 Condition: Fair sb4 Problem: new sb4 Symptoms: are unchanged sb4 Bed/Room Type: Standard sb4 Room Assignment: 222(04/17/25 13:07) eb Diagnosis - Altered mental status, unspecified sb4 - Adult failure to thrive sb4 Forms: - Medication Reconciliation Form sb4 - SBAR form sb4 - Leadership Thank You Letter sb4 Signatures: Dispatcher [employer] EDMS Henry Villagran MD MD rn Prokisch, Amanda, RN RN lavell3 Kavya Sotelo Danielle RN RN Kena Mitchell PA-C PABrenda sb4 Corrections: (The following items were deleted from the chart) 11: 11:27 BASIC METABOLIC PANEL+C.LAB.BRZ ordered. EDMS EDMS 11 11:27 CBC+H.LAB.BRZ ordered. EDMS EDMS 11: 11:27 HEPATIC FUNCTION+C.LAB.BRZ ordered. EDMS EDMS 11:27 MAGNESIUM+C.LAB.BRZ ordered. EDMS EDMS 11: 11:27 Troponin High Sensitivity+C.LAB.BRZ ordered. EDMS EDMS 11: 11:27 URINE DRUG SCREEN+UC.LAB.BRZ ordered. EDMS EDMS 11:27 UA Rfx Jewel Cult if indicated+U.LAB.BRZ ordered. EDMS EDMS 12:40 12:27 NS 0.9% IV 1000 ml IV at 1000 ml once; to be given as a bolus over 60 minutes sb4 ordered. sb4 13:07 12:39 sb4 eb
[2025-04-17] MEDS ORDERED: D5 0.45 NS 1,000 ML IV ONE (12:49)
[2025-04-17] MEDS ORDERED: ONDANSETRON 4 MG/2 ML VIAL IV PRN (12:57)
[2025-04-17] MEDS ORDERED: ALBUTEROL 2.5 MG/3 ML NEB SOL NEB PRN (12:57)
--- NOTE | 2025-04-17 13:04 | P.HP ---
Certification for Inpatient Patient admitted to: Inpatient With expected LOS: >2 Midnights Practitioner: I am a practitioner with admitting privileges, knowledge of patient current condition, hospital course, and medical plan of care. Services: Services provided to patient in accordance with Admission requirements found in Title 42 Section 412.3 of the Code of Federal Regulations Patient History Date of Service: 04/17/25 Reason for admission: AMS History of Present Illness: Patient is 70 year old female with a known history of squamous cell lung cancer treated with chemotherapy and immunotherapy since May 2024 and now continued on immunotherapy alone. She is also had lung surgery. She presents to the ER with altered mental status and failure to trhive. Patient was recently discharged from [facility] after a visit for visual hallucinations and insomnia. She was found to have a mild UTI and dehyrdation. She hasn't improved much since her discharged. She continues to have some delirium and insomnia. She was discharged on ramelteon and Seroquel but with no much relief for her symptoms. While at [facility], she had an extensive work up including CT head and Brain MRI (with and without contrast) which were unremarkable. Family denies a history of Alzheimer's dementia. Work up in the ER here showed an abnormal UA. She received IV fluid. 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 Allergies latex Allergy (Intermediate, Verified 12/30/17 10:57) Rash adhesive tape Allergy (Verified 12/30/17 10:57) Rash, blisters serotonin derivatives Allergy (Mild, Uncoded 07/24/20 23:23) Nausea/Vomiting Home Medications: Metformin HCl [Glucophage] 500 mg PO DAILY WITH BREAKFAST 12/30/17 Aspirin Chewable [Aspirin Chewable*] 1 tab PO DAILY 07/24/20 Atorvastatin Calcium [Lipitor*] 1 tab PO DAILY 07/24/20 Duloxetine [Cymbalta *] 50 mg PO DAILY 07/24/20 Isosorbide Mononitrate [Isosorbide Mononitrate ER] 1 tab PO DAILY 07/24/20 Metoprolol Succinate [Toprol Xl*] 1 tab PO DAILY 07/24/20 Prazosin HCl [Minipress*] 1 tab PO DAILY 07/24/20 hydrOXYzine HCL [Atarax*] 1 tab PO DAILYPRN PRN 07/24/20 - Past Medical/Surgical History Diabetic: Yes -: Type 2 diabetes -: hyperlipidemia -: stent placement-both legs -: hysterectomy -: cholecystectomy -: left knee surgery - Family History Brother Notes: epilepsy Sister Notes: physically and mentally handicap Mother -: Cancer Notes: bone CA - Social History Alcohol use: No CD- Drugs: No Caffeine use: No Physical Examination - Physical Exam General: Confused HEENT: Atraumatic, Normocephalic Respiratory: Clear to auscultation bilaterally, Normal air movement Cardiovascular: No edema, Normal pulses, Regular rate/rhythm, Normal S1 S2 Neurological: Normal speech - Studies Laboratory Data (last 24 hrs) 04/17/25 04/17/25 11:30 11:30 WBC 4.40 Hgb 10.7 L Hct 31.9 L Plt Count 231 Sodium 133 L Potassium 4.0 BUN 14 Creatinine 0.88 Glucose 63 L Magnesium 1.7 Total Bilirubin 0.5 AST 27 ALT 18 Alkaline Phosphatase 89 Assessment and Plan - Plan Assessment Patient is a 70 year old female with recent mental status decline who returns to the hospital for AMS and failure to thrive. Her UA is mildly abnormal. Patient continues to be confused. She has had extensive workup for these symptoms at [facility] recently including CT head and MRI brain with and without contrast. All returned negative. During this admission, we will hold off repeating brain imaging. Acute encephalopathy Failure to thrive Type II diabetes mellitus PVD OA and Degenerative disc disease PLAN: Will admit inpatient with telemetry Sitter at bedside As needed IV Haldol for severe agitation. No QT prolongation on EKG Lumbar puncture to rule out leptomeningeal disease. CSF analysis sent including cell count, protein and glucose Patient may need additional workup such as NMDA. Please discuss with neurology Start patient on Zosyn due to past hx of ceftriaxone-resistant Enterobacter aerogenes IVF infusion Check lactate, ammonia and TFT PT/OT Dietary consult Encourage nutrition - ensure - Advance Directives Does patient have a Living Will: Yes Does patient have a Durable POA for Healthcare: Yes
[2025-04-17] MEDS: CEFTRIAXONE 1,000 MG in NA CHLORIDE 0.9% 50 ML IVPB SCH (13:05)
[2025-04-17 14:16] LABS: METHAMPHETAM NEGATIVE (NEGATIVE); THC Cannibis NEGATIVE (NEGATIVE)
[2025-04-17 14:35] VITALS: BMI 23.1
--- NOTE | 2025-04-17 16:14 | RAD REPORT ---
EXAM: Chest Single View HISTORY: 70 years Female lung cancer COMPARISON: No prior exams FINDINGS: LUNGS/PLEURA: Fullness in the medial right upper lung.Right tracheal stent. The lungs are otherwise c lear. CARDIAC/MEDIASTINUM: The cardiac silhouette is within normal limits. UPPER ABDOMEN: No significant abnormality. BONES: No acute abnormality. LINES/TUBES/OTHER: N/A IMPRESSION: No evidence of acute cardiopulmonary disease. Right tracheal stent with probable right upper lobe mas s versus mediastinal lymphadenopathy
[2025-04-17] MEDS: PIPER TAZO 3.375 GM in NA CHLORIDE 0.9% 100 ML IV SCH (16:55)
[2025-04-17] MEDS: NA CHLORIDE 0.9% 1,000 ML IV SCH (16:55)
[2025-04-17] MEDS: ZOLPIDEM TARTRATE 5 MG TABLET PO PRN (20:45)
[2025-04-17] MEDS: DULOXETINE 20 MG CAP PO SCH (20:45)
[2025-04-17] MEDS ORDERED: D50W 25 GM/50 ML SYRINGE IV PRN (20:56)
[2025-04-17] MEDS: D10W 125 ML IV PRN (21:15)
[2025-04-18] MEDS: LEVOTHYROXINE SOD 0.075 MG TAB PO SCH (06:11)
[2025-04-18 07:19] LABS: Hematocrit 29.1 % (36.0-45.0); Hemoglobin 10.0 g/dL (12.0-15.0); MCH 29.4 pg (27.0-35.0); MCHC 34.3 g/dL (32.0-36.0); MCV 85.7 fL (80-100); MPV 7.0 fL (7.6-11.3); RBC Red Blood Cell Count 3.40 M/uL (3.86-4.86); White Blood Count 3.60 thou/uL (4.3-10.9)
[2025-04-18 07:28] LABS: PT Prothrombin Time 14.6 SECONDS (10-13.0); PTT, Activated Partial Thromb 38.0 SECONDS (27.2-37.4); Protime INR 1.3
[2025-04-18 07:35] LABS: Anion Gap 10.9 mEq/L (5.0-15.0); BUN Blood Urea Nitrogen 10.0 mg/dL (7-18); Glucose Level 71.0 mg/dL (74-106); Potassium 3.9 mEq/L (3.5-5.1)
[2025-04-18 07:47] LABS: Magnesium 1.5 mg/dL (1.6-2.4); Thyroid Stimulating Hormone 2.4 uIU/mL (0.358-3.740)
[2025-04-18] MEDS: MAGNESIUM SULFATE 1 gm IVPB 1 GM/100 ML BAG IV ONE (08:48)
[2025-04-18] MEDS: BUPROPION HCL XL 150 MG TAB PO SCH (08:50)
[2025-04-18] MEDS: METOPROLOL XL 25 MG TAB PO SCH (08:50)
[2025-04-18] MEDS: ENOXAPARIN 40 MG/0.4 ML SQ SCH (08:50)
[2025-04-18 09:19] LABS: Blood Morphology Comment NOTED (NOT SEEN); Differential Total Cells Count 100; Segmented Neutrophils 61 % (40-80)
[2025-04-18] MEDS: D5 0.9 NS 1,000 ML IV SCH (18:15)
[2025-04-18] MEDS: DULOXETINE 30 MG CAP PO SCH (20:25)
[2025-04-18] MEDS: HALOPERIDOL LACT 5 MG/ML INJ IV PRN (20:43)
[2025-04-18] MEDS: ENSURE ENLIVE 237 ML CAN PO SCH (21:00)
[2025-04-19] MEDS: levETIRAcetam 500 MG in NA CHLORIDE 0.9% 100 ML IV SCH (09:44)
--- NOTE | 2025-04-19 13:01 | P.PN ---
Subjective Date of Service: 04/19/25 Chief Complaint: AMS,AGITATED, DISORIENTED, SHORT OF BREATH, GARGLING IN THE LUNGS. Subjective: Worsening LEWIS HAS HAD AN ADVANCED LUNG CANCER. SHE HAS BEEN A HEAVY SMOKER ALL HER LIFE. SHE GOES TO [facility] FOR HER CARE. THEY GAVE, CHEMO, RADIATION AND DID LOBECTOMY. SHE HAS BEEN WORSE FOR LAST TWO WEEKS. AGITATED, NIGHTMARES, CONFUSION, FOR WHICH I HAD THE SON TAKE HER TO [facility]. SHE STAYED THERE A WEEK, DID CT CHEST, MRI BRAIN AND THERE IS A POSSIBILITY OF ASPIRATION ON THE CT CHEST. SHE WAS SENT HOME WITH SLEEPING MEDS THEY SUSPECTED SLEEP DEPRIVATION. SON BROUGHT HER HERE TWO DAYS AGO SHE DID NOT GET BETTER, RATHER GOT WORSE. I WAS OUT OF TOWN UNTIL TODAY. I SEE HER TODAY LAYING IN THE BED, CACHETIC POSSIBLE ASPIRATING ON HER SALIVA. I ASKED THE SITTER TO KEEP HER HEAD UP BY ABOUT 45 DEGREES. I CALLED THE SON FROM MY OFFICE. Review of Systems is unable to be obtained Physical Examination - Vital Signs Temperature: 99.2 F Blood Pressure: 144/76 Pulse: 119 Respirations: 20 Pulse Ox (%): 94 - Physical Exam General: Cachectic, Moderate distress, Confused, Delirious, Unresponsive (TO VERBAL COMMAND IN A COGNITVE WAY.) HEENT: Atraumatic, PERRLA, EOMI Neck: Supple, JVD not distended Respiratory: Diminished, Inspiratory wheezes, Rhonchi/gurgles Cardiovascular: Regular rate/rhythm, Normal S1 S2 Gastrointestinal: Normal bowel sounds, No tenderness Musculoskeletal: No tenderness Integumentary: No rashes Neurological: Other (AGITATED, CONFUSED, DISORIENTED, CONSTANTLY MOVING IN THE BED.) Lymphatics: No axilla or inguinal lymphadenopathy - Studies Medications List Reviewed: Yes Assessment And Plan - Current Problems (Diagnosis) (1) Lung cancer Current Visit: Yes Status: Chronic Plan: LEWIS HAS HAD SEVERE LUNG CANCER SHE HAD FULL THERAPY BUT SHE FAILED TO RECOVER [facility] CAN[facility]ER MAY BE IN CONTROL FOR NOW. I TALKED TO SON. HE DID NOT KNOW ABOUT THE SEVRITY OF CONDITION. I ADVISED HOSPICE AND CONSULTED TRANSITION PROGRAM MANAGER. PER HER WISH AND SON'S CONFIRMATION I MADE HER DNR. HER PROGNOSIS IS POOR AND SHE MAY GET RAPIDLY WORSE WITHIN DAYS TO WEEKS. Allergies Latex Imipramine = NAUSEA , VOMITING Imitrex = Nausea and vomiting heart palpitation. Augmentin = NAUSEA AND VOMITING Drug Intolerances No known drug intolerances Problem List 2018 Erosive (osteo)arthritis [M19.90] 2018 Cervical radicular pain [M54.12] 2018 Myelomalacia [G95.89 0.5] 2017 Degenerative disc disease, cervical [M50.30] CCP NEG. CCP NEG. 2019 Occipital neuralgia [M54.81] 2019 PVD (peripheral vascular disease) [I73.9] R SFA 90% BLOCK. NEG CARDIAC CATH. MILD PLAQUES. R SFA 90% BLOCK. NEG CARDIAC CATH. MILD PLAQUES. 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 BY DR. CAGE NEOADJUVANT CHEMO AND THEN SURERY TO REMOVE R UPPER LOBE. BY DR. CAGE 2024 Squamous cell carcinoma of right lung [C34.91 1.1] T3, N2. M0 T3, N2. M0 Qualifiers: Laterality: right (2) Aspiration pneumonia Current Visit: Yes Status: Acute Plan: CONTNUE ABX. I SUSPECT WILL NOT MAKE ANY DIFFERENCE. (3) Encephalopathy acute Current Visit: Yes Status: Acute Plan: RELATED TO ABOVE ISSUES. SPINAL TAP DONE. PROTEIN HIGH. OTHERS PENDING STARTED KEPPRA IV TO SEE IF SHE CAN CALM DOWN SOME IF THERE IS ANY CHANCE OF ATYPICAL SEIZURES. SHE IS TOO AGITATED TO GO FOREEG. (4) Adult failure to thrive Current Visit: Yes Status: Chronic
[2025-04-19 13:05] LABS: Color of Supernate Not Xanthochromic (Not Xantho); Color of fluid Pink (COLORLESS); Fluid Total Cells Count 100
--- NOTE | 2025-04-19 17:06 | RAD REPORT ---
XR SPINE LUMBAR PUNCTURE CLINICAL INDICATION: Alteration of consciousness/confusion TECHNIQUE: The risks (including the risks of bleeding, infection, headache, nerve injury), benefits, and alternatives of the procedure were carefully explained to the patient's family member who wished to proceed. Informed written consent was obtained . The patient was placed prone into the fluoroscopy suite. Skin and deeper tissues were anesthetized wi th lidocaine. Under fluoroscopic guidance a 22-gauge spinal needle was advanced into the thecal sac at the L2-3 lev el. The tap was traumatic. Approximately 11 cc CSF removed and sent to the lab. Complications: None Fluoroscopy time 1.2 minutes. One fluoroscopic spot image obtained IMPRESSION: Lumbar puncture
[2025-04-19] MEDS: HYDROMORPHONE HCL 1 MG/ML INJ IV PRN (20:24)
[2025-04-19] MEDS: ACETAMINOPHEN 650MG/RECT SUPP PR PRN (20:43)
[2025-04-20] MEDS: IPRATROPIUM BROM 0.5MG/2.5ML NEB PRN (01:46)
[2025-04-20] MEDS: ALBUTEROL 2.5 MG/3 ML NEB SOL NEB PRN (01:46)
[2025-04-20 10:31] VITALS: O2SAT 91
[2025-04-20 11:29] VITALS: TEMP 101.5
[2025-04-20 11:30] VITALS: BP 105/48
--- NOTE | 2025-04-20 14:40 | EEG ---
CHART: [id number] TEST ID#: [id number] DATE OF STUDY: 04/18/2025 THE EEG WAS RECORDED PORTABLE IN THE PATIENT'S ROOM ON A 17 CHANNEL MACHINE. ELECTRODES WERE APPLIED IN THE USUAL MANNER USING THE INTERNATIONAL 10-20 SYSTEM. THE WAKING BACKGROUND RHYTHM IN THIS RECORD CONSISTS OF POORLY DEVELOPED AND POORLY ORGANIZED WAVES OF 6-7 HZ., IN A WIDE DISTRIBUTION WHICH ATTENUATE NORMALLY WITH EYE OPENING. MODERATE VOLTAGE 1.5-3 HZ ACTIVITY IS EXPRESSED OCCASIONALLY IN THE FRONTAL REGIONS. THERE ARE NO FOCAL OR LATERALIZING FEATURES. NO EPILEPTIFORM ACTIVITY APPEARS. SLEEP DID NOT OCCUR. HYPERVENTILATION WAS NOT PERFORMED. PHOTIC STIMULATION PRODUCED NO DRIVING BILATERALLY. IMPRESSION: THIS IS A MILDLY ABNORMAL AWAKE ROUTINE EEG DUE TO THE PRESENCE OF A DIFFUSELY SLOW BACKGROUND. THIS IS A NON-SPECIFIC FINDING INDICATING THE PRESENCE OF A DIFFUSE DISTURBANCE IN CEREBRAL FUNCTION.
--- NOTE | 2025-04-20 21:36 | P.DS ---
Admission Date: 04/17/25 Discharge Date: 04/20/25 Disposition: DC TO HOSPICE INTERNAL GIP FAC Reason for Admission: AMS,AGITATED, DISORIENTED, SHORT OF BREATH, GARGLING IN THE LUNGS. - Problems (1) Lung cancer Status: Chronic Qualifiers: Laterality: right (2) Aspiration pneumonia Status: Acute (3) Encephalopathy acute Status: Acute (4) Adult failure to thrive Status: Chronic Hospital Course: LEWIS HAS END STAGE LUNG CANCER WITH RESPIRATORY FALIURE. SHE FAILED TO IMPROVE WITH IV ABX. SHE RAPIDLY GOT WORSE SO THE SON FOLLOWING HER WISHES MADE HER DNR AND AGREED TO PLACE HER ON HOSPICE. Vital Signs/Physical Exam: Temp Pulse Resp BP Pulse Ox 101.5 F H 108 H 20 105/48 L 91 04/20/25 11:29 04/20/25 11:29 04/20/25 11:29 04/20/25 11:29 04/20/25 11:29 Laboratory Data at Discharge: WBC 3.60 thou/uL (4.3-10.9) L 04/18/25 07:07 Hgb 10.0 g/dL (12.0-15.0) L 04/18/25 07:07 Hct 29.1 % (36.0-45.0) L 04/18/25 07:07 Plt Count 208 thou/uL (152-406) 04/18/25 07:07 PT 14.6 SECONDS (10-13.0) H 04/18/25 07:07 INR 1.30 04/18/25 07:07 APTT 38.0 SECONDS (27.2-37.4) H 04/18/25 07:07 Sodium 134 mEq/L (136-145) L 04/18/25 07:07 Potassium 3.9 mEq/L (3.5-5.1) 04/18/25 07:07 BUN 10 mg/dL (7-18) 04/18/25 07:07 Creatinine 0.66 mg/dL (0.55-1.02) 04/18/25 07:07 Glucose 71 mg/dL (74-106) L 04/18/25 07:07 Phosphorus 3.5 mg/dL (2.5-4.9) 04/18/25 07:07 Magnesium 1.5 mg/dL (1.6-2.4) L 04/18/25 07:07 Total Bilirubin 0.5 mg/dL (0.2-1.0) 04/17/25 11:30 AST 27 U/L (15-37) 04/17/25 11:30 ALT 18 U/L (13-56) 04/17/25 11:30 Alkaline Phosphatase 89 U/L (45-117) 04/17/25 11:30 Home Medications: Metformin HCl [Glucophage] 500 mg PO BID 12/30/17 Metoprolol Succinate [Toprol Xl*] 1 tab PO DAILY 07/24/20 Bupropion *Xl* [Wellbutrin XL] 150 mg PO DAILY 04/17/25 Duloxetine [Cymbalta Dalayed Release Pellets] 60 mg PO BEDTIME 04/17/25 Levothyroxine [Synthroid] 75 mcg PO [id number] 04/17/25 Followup: Franklyn Dougherty MD [Primary Care Provider] -
== END 2025-04-20 12:23 | disposition hospice, inpatient (51) | DRG 178 ==
LOC: ER 11:00 → ERHOLD 12:57 → 2ND 13:24
PROVIDERS: ADMIT Internal Medicine; ATTEND Hospitalist
PROC: 009U3ZZ Drainage of Spinal Canal, Percutaneous Approach (ICD-10-PCS; principal; 2025-04-19)
PROC: B01BYZZ Fluoroscopy of Spinal Cord using Other Contrast (ICD-10-PCS; 2025-04-19)
DX: J69.0 Pneumonitis due to inhalation of food and vomit (principal); E44.1 Mild protein-calorie malnutrition; G93.40 Encephalopathy, unspecified; Z66 Do not resuscitate; Z68.23 Body mass index [BMI] 23.0-23.9, adult; E11.51 Type 2 diabetes mellitus with diabetic peripheral angiopathy without gangrene; Z91.040 Latex allergy status; F41.9 Anxiety disorder, unspecified; F32.A Depression, unspecified; Z87.442 Personal history of urinary calculi; Z85.118 Personal history of other malignant neoplasm of bronchus and lung; Z90.710 Acquired absence of both cervix and uterus; Z90.49 Acquired absence of other specified parts of digestive tract; Z92.3 Personal history of irradiation; Z92.21 Personal history of antineoplastic chemotherapy; Z92.25 Personal history of immunosuppression therapy; R41.0 Disorientation, unspecified; G47.00 Insomnia, unspecified; Z88.8 Allergy status to other drugs, medicaments and biological substances; Z91.048 Other nonmedicinal substance allergy status; Z79.82 Long term (current) use of aspirin; Z79.84 Long term (current) use of oral hypoglycemic drugs; Z79.899 Other long term (current) drug therapy; Z98.890 Other specified postprocedural states; Z90.2 Acquired absence of lung [part of]; Z88.1 Allergy status to other antibiotic agents; Z72.0 Tobacco use; Z79.890 Hormone replacement therapy
CPT/HCPCS: 36415; 71045; 77003; 80048; 80076; 80307; 81001; 82140; 82945; 82947; 83605; 83735; 84100; 84157; 84439; 84443; 84481; 84484; 85025; 85610; 85730; 86592; 87077; 87086; 87088; 87186; 87205; 88108; 89050; 93005; 94640; 95816; 99285; J1171; J1630; J1650; J1953; J2543; J3475; J7030; J7042; J7613; J7644; J7799

== ENCOUNTER 2025-04-20 12:22 | Inpatient (IN) | payer OTHER ==
--- OUTSIDE RECORDS SUMMARY | 2025-04-20 12:43 | XMS REPORT | Clinical Summary ---
Author Name Unknown Organization [facility] Address [address] [place] [address] Care Team Providers Care Skin Care Specialist Name Role Phone Renny Stover MD Unavailable [phone] Suzanne Denis RN Unavailable [phone] Andi Cassidy MD Unavailable Renny Stover MD Unavailable [phone] Fred Frankel MD Primary Care Provider [phone] Bre Subramanian [facility] N RN Unavailable [phone] Aleks Figueroa MD Unavailable [phone] Umm Silva MD Unavailable [phone] Allergies Active Allergy Reactions Criticality Noted Date [...] Department Care Team Description 07/27/2024 8:00 PM ALTERATIONS EXPERT Ancillary Procedure Image Library [address] [place] [address] Fred Frankel MD Cancer 07/27/2024 Telephone [facility] [address]ld[address], 9th [place] [address] Bre Subramanian, RN Nurse Navigation 07/26/2024 Telephone [facility] [address] Bld[address], 9th [place] [address] Bre Subramanian, RN Nurse Navigation 07/20/2024 Orders Only [facility] [address] Bld[address], 9th [place] [address] Brunilda Carlson, REBA 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) 06/25/2024 Orders Only [facility] [address] Bld[address], 9th [place] [address] Brunilda Carlson, COMMUNITY ACTION WORKER 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) 06/18/2024 Telephone [facility] [address] Bldg, 9th [place] [address] Bre Subramanian RN Nurse Navigation 06/03/2024 Telephone [facility] [address] Bldg, 9th [place] [address] Bre Subramanian, RN Nurse Navigation 06/02/2024 12:15 PM CDT - 06/02/2024 11:59 PM CDT Hospital Encounter [facility] [address] Bldg, [address]st [place] [place] [address] Fred Frankel MD Bronk, Julianna K, MD Discharge Disposition: Home 06/02/2024 10:05 AM CDT - 06/02/2024 12:14 PM CDT Hospital Encounter [facility] - Pulmonology Lab [address]ld[address], 6th [place] [address] Awa Cam Gladis, COMMUNITY ACTION WORKER 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 Discharge Disposition: Home 06/02/2024 8:00 AM CDT Office Visit [facility] Main [facility], 9th [place] [address] Aleks Figueroa MD 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) 06/02/2024 Telephone [facility] [address] [place] [address], [place] [address] Suzanne Denis, RN 06/01/2024 8:10 PM CDT Ancillary Procedure Image Library [address] [place] [id number] Fred Frankel MD Cancer 06/01/2024 8:05 PM CDT Ancillary Procedure Image Library [address] [place] [address] Fred Frankel MD Cancer 06/01/2024 8:00 PM CDT Ancillary Procedure Image Library [address] [place] [address] Fred Frankel MD Cancer 06/01/2024 1:30 PM CDT Office Visit [facility] [address] [place] [address], [address] [place] [address] [place] [address] Fred Frankel MD 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) 06/01/2024 1:00 PM CDT NPR [facility] PATIENT ACCESS Fred Frankel MD 06/01/2024 Travel 05/19/2024 Telephone [facility] [place] - [facility] [address] [place] [address], [place] [address] Suzanne Denis, RN 05/17/2024 8:00 PM CDT Ancillary Procedure Image Library [address] [place] [address] Fred Frankel MD Cancer 05/13/2024 8:40 PM CDT Ancillary Procedure Image Library [address] [place] [address] Fred Frankel MD Cancer 05/13/2024 8:35 PM CDT Ancillary Procedure Image Library [address] [place] [address] Fred Frankel MD Cancer 05/13/2024 8:30 PM CDT Ancillary Procedure Image Library [address] [place] [address] Fred Frankel MD Cancer 05/13/2024 Lab Requisition [facility] Roel Amezcua MD Mody, Dina, MD 05/13/2024 Lab Requisition [facility] Roel Amezcua MD Ewton, April Anne, MD 05/12/2024 Telephone [facility] [place] - Medical Oncology [address] [place] [address] Main [facility], 9th [place] [address] Suzanne Denis, MARGI 05/06/2024 Telephone [facility] [place] - Medical Oncology [address] [place] [address], 9th [place] [address] Suzanne Denis, RN after 04/20/2024 Surgical History Surgery Date Site/Laterality Comments HYSTERECTOMY [...] (#1) 2025 Medical Devices Implanted Type Area Jailer/Training Officer Device Identifier Shelf Expiration Date Model / Serial / Lot Mesh Mesh Vagina Screw-09/01/2013 Implanted:09/2013 (Quantity not on file) Screw Left: Knee Stent Stent Bilateral: Groin Procedures Procedure Name Priority Date/Time Associated Diagnosis Comments OSI PET CT SKULL TO MID THIGH Routine 07/07/2024 12:58 PM ALTERATIONS EXPERT Cancer 6 MINUTE WALK TEST Routine 06/02/2024 [...] Routine 04/22/2024 8:48 PM CDT Cancer after 04/20/2024 Results * OSI PET CT Skull to Mid Thigh (07/07/2024 12:58 PM ALTERATIONS EXPERT) Only the most recent of2 resultswithin the time period is included. Narrative Systemgenerated, Documentation - 07/27/2024 12:58 PM ALTERATIONS EXPERT Study acquired at another institution. For comparison [...] 99.00 % 06/02/2024 11:21 AM CDT [facility] Qv68_Urmn 0.00 min 06/02/2024 11:21 AM CDT [facility] HRmax_Test 93.00 BPM 06/02/2024 11:21 AM CDT [facility] Lap Dist_Test 60.00 m 06/02/2024 11:21 AM CDT [facility] Dyspnea_Baseli ne 0.00 06/02/2024 11:21 AM CDT [facility] Exertion_Basel ine 0.00 06/02/2024 11:21 AM CDT [facility] SpO2_Baseline 100.00 % 06/02/2024 11:21 AM CDT [facility] SpO2min_Baseli ne 100.00 % 06/02/2024 11:21 AM CDT [facility] Bv67_Lpycccik 0.00 min 06/02/2024 11:21 AM CDT [facility] [...] 100.00 % 06/02/2024 11:21 AM CDT [facility] Ti37_Tldcatjz 0.00 min 06/02/2024 11:21 AM CDT [facility] [...] at another institution. For comparison only. No [facility] originated interpretation requested or available. us Fred Frankel MD IMG OUTSIDE IMAGE ORDERABLES Final Result * Pathology Outside Interpretation (04/23/2024) Only the most recent of2 resultswithin the time period is included. Materials Received Accession#, Stained, Block, Unstained Collected Received A. [facility]-, 13 SS, 0 BLOCKS, 0 USS 04/23/2024 05/13/2024 05/13/2024 4:50 PM CDT [facility] Diagnosis Outside (FM, 13 SS, 0 BLOCKS, 0 USS, collected on 04/23/2024): A. Lung, right upper lobe, EBUS-guided FNA: SQUAMOUS CARCINOMA (see comment) B. Lymph node, station 4L, EBUS-guided FNA: METASTATIC SQUAMOUS CARCINOMA C. Lymph node, subcarainal, EBUS-guided FNA: METASTATIC SQUAMOUS CARCINOMA 05/13/2024 4:50 PM CDT [facility] at 1650 CDT Comment The provided immunostains, performed on cell block with appropriate controls, show the tumor cells to be positive for p40 and negative for TTF-1. The findings support the above diagnosis. 05/13/2024 4:50 PM CDT [facility] Biomarker Block(s) Block for biomarker testing: ACB1 (> 300), CCB1 (50-300) Normal block: No 05/13/2024 4:50 PM CDT [facility] Disclaimer "Some tests reported here may have been developed and performance characteristics determined by [facility] Pathology and Laboratory Medicine. These tests have not been specifically cleared or approved by the U.S. Food and Drug Administration. If applicable, controls were reviewed and showed appropriate reactivity." 05/13/2024 4:50 PM CDT [facility] Tissue 04/23/2024 05/13/2024 9:2 3 AM CDT us Elaine Sandra MD LAB PATHOLOGY ORDERABLES Final R esult [facility] [address] [place] [address], * OSI CT Chest (04/22/2024 8:48 PM CDT) Narrative Systemgenerated, Documentation - 05/13/2024 8:49 PM CDT Study acquired at another institution. For comparison only. No [facility] originated interpretation requested or available. us Fred Frankel MD IMG OUTSIDE IMAGE ORDERABLES Final Result after 04/20/[address] [employer] MEDICARE PPO [employer] MEDICARE PPO Advance Directives * Full Code (Latest Code Status on File) Date Activated Date Inactivated Comments 01/19/2025 11:55 AM Update based on Advanced Directive Documentation Care Teams Skin Care Specialist Relationship Specialty Start Date End Date Renny Stover MD PCP - External Follow Up A Thoracic Surgery 04/01/24 05/05/24 Andi Cassidy MD [address] [place] [id number] PCP - External Follow Up A Hematology 05/06/24 Renny Stover MD PCP - External Follow Up B Thoracic Surgery 05/06/24 Fred Frnakel MD [address] [place] [id number] [email or web address] PCP - General Thoracic Medicine 04/01/24 Suzanne Denis RN [address] [place] [phone] [email or web address] Intake Nurse Navigator Nursing 05/06/24 06/01/24 Bre Subramanian RN [address] [place] [phone] [email or web address] Nurse Navigator Nursing 06/02/24 5 Aleks Figueroa MD [address] [place] [phone] [email or web address] Consulting Physician Thoracic Surgery 06/02/24 Umm Silva MD [address] [place] [id number] [email or web address] Consulting Physician Radiation Oncology 06/02/24
[2025-04-20] MEDS ORDERED: BISACODYL 10 MG RECTAL SUPP PR PRN (12:45)
[2025-04-20] MEDS ORDERED: ACETAMINOPHEN 650MG/RECT SUPP PR PRN (12:46)
[2025-04-20] MEDS ORDERED: ONDANSETRON 4 MG (ODT) TAB PO PRN (12:46)
[2025-04-20] MEDS: SCOPOLAMINE HYDROBROMIDE PATCH TD SCH (13:44)
[2025-04-20] MEDS: LORazepam 2 MG/ML VIAL IV PRN (14:20)
[2025-04-20] MEDS: HYDROMORPHONE HCL 2 MG/ML inj IV SCH (14:59)
--- NOTE | 2025-04-20 21:21 | P.HP ---
Patient History Date of Service: 04/20/25 Reason for admission: ADVANCED LUNG CANCER History of Present Illness: SNEHAL HAS BEEN A HEAVY SMOKER UNTIL HER DIAGNOSIS OF CANCER. SHE HAS T3N2 LUNG CANCER. SHE WENT THROUGH CHEMO, RADIATION BUT FAILED TO THRIVE. SHE COMES WITH DYSPNEA, AGITATION, GIVEN IV ZOSYN FOR ASPIRATION AND FAILED TO RECOVER. BEFORE THAT [facility] ADMITTED HER AND SENT HER HOME AFTER A WEEK SAYING THAT SHE IS AGITATED BECAUSE OF SLEEP DEPRIVATION. SHE NEVER GOT BETTER, BECAME MORE AND MORE AGITATED AND HYPOXIC. I SUSPECT HER LUNG CANCER IS MORE ADVANCED THAN REPORTED. SHE WAS TO GO HOME ON HOSPICE BUT GOT WORSE OVERNIGHT. I ASKED FOR INPATIENT HOSPICE AND SON AGREED. Allergies latex Allergy (Intermediate, Verified 12/30/17 10:57) Rash adhesive tape Allergy (Verified 12/30/17 10:57) Rash, blisters serotonin derivatives Allergy (Mild, Uncoded 07/24/20 23:23) Nausea/Vomiting Home Medications: Metformin HCl [Glucophage] 500 mg PO BID 12/30/17 Metoprolol Succinate [Toprol Xl*] 1 tab PO DAILY 07/24/20 Bupropion *Xl* [Wellbutrin XL] 150 mg PO DAILY 04/17/25 Duloxetine [Cymbalta Dalayed Release Pellets] 60 mg PO BEDTIME 04/17/25 Levothyroxine [Synthroid] 75 mcg PO [id number] 04/17/25 - Past Medical/Surgical History Diabetic: Yes -: Type 2 diabetes -: hyperlipidemia -: lung cancer -: stent placement-both legs -: hysterectomy -: cholecystectomy -: left knee surgery - Family History Brother Notes: epilepsy Sister Notes: physically and mentally handicap Mother -: Cancer Notes: bone CA - Social History Alcohol use: No CD- Drugs: No Caffeine use: Yes Review of Systems is unable to be obtained Physical Examination - Vital Signs Temperature: 99.6 F Blood Pressure: 93/54 Pulse: 107 Respirations: 20 Pulse Ox (%): 75 - Physical Exam General: Cachectic, Moderate distress Respiratory: Diminished, Crackles/rales, Rhonchi/gurgles Cardiovascular: Normal S1 S2 Gastrointestinal: Normal bowel sounds Assessment and Plan - Problems (Diagnosis) (1) Lung cancer Current Visit: No Status: Chronic Plan: EESPIRATORY FAILURE SECONDARY TO LUNG CNACER. I SUSEPCT SHE WILL NOT LIVE MORE THAN A DAY OR TWO WITH RAPID WORSENING. HER PULSE OX IS DOWN TO 77% NOW. Qualifiers: Laterality: right - Advance Directives Does patient have a Living Will: Yes Does patient have a Durable POA for Healthcare: No
[2025-04-21 05:22] VITALS: BP 58/33
[2025-04-21 05:39] VITALS: TEMP 102.2
--- NOTE | 2025-04-21 22:01 | P.DS ---
Admission Date: 04/20/25 Discharge Date: 04/21/25 Disposition: Discharge Condition: Reason for Admission: ADVANCED LUNG CANCER - Problems (1) Lung cancer Status: Chronic Qualifiers: Laterality: right Brief History of Present Illness: SNEHAL HAS BEEN A HEAVY SMOKER UNTIL HER DIAGNOSIS OF CANCER. SHE HAS T3N2 LUNG CANCER. SHE WENT THROUGH CHEMO, RADIATION BUT FAILED TO THRIVE. SHE COMES WITH DYSPNEA, AGITATION, GIVEN IV ZOSYN FOR ASPIRATION AND FAILED TO RECOVER. BEFORE THAT [facility] ADMITTED HER AND SENT HER HOME AFTER A WEEK SAYING THAT SHE IS AGITATED BECAUSE OF SLEEP DEPRIVATION. SHE NEVER GOT BETTER, BECAME MORE AND MORE AGITATED AND HYPOXIC. I SUSPECT HER LUNG CANCER IS MORE ADVANCED THAN REPORTED. SHE WAS TO GO HOME ON HOSPICE BUT GOT WORSE OVERNIGHT. I ASKED FOR INPATIENT HOSPICE AND SON AGREED. Hospital Course: LEWIS WAS A HEAVY SMOKER WITH END STAGE LUNG CANCER. SHE COMES WITH AGITATION, CONFUSION AND SLIPS INTO [facility]. ON HOSPICE SHE EXPECTED. Vital Signs/Physical Exam: Temp Pulse Resp BP Pulse Ox 102.2 F H 113 H 23 H 58/33 L 83 L 04/21/25 05:38 04/21/25 04:00 04/21/25 04:00 04/21/25 04:00 04/21/25 04:00 Home Medications: Metformin HCl [Glucophage] 500 mg PO BID 12/30/17 Metoprolol Succinate [Toprol Xl*] 1 tab PO DAILY 07/24/20 Bupropion *Xl* [Wellbutrin XL] 150 mg PO DAILY 04/17/25 Duloxetine [Cymbalta Dalayed Release Pellets] 60 mg PO BEDTIME 04/17/25 Levothyroxine [Synthroid] 75 mcg PO [id number] 04/17/25 Followup: Franklyn Dougherty MD [Primary Care Provider] -
== END 2025-04-21 11:30 | disposition expired | DRG 951 ==
LOC: 2ND 12:22
PROVIDERS: ADMIT Internal Medicine; ATTEND Internal Medicine
DX: Z51.5 Encounter for palliative care (principal)
CPT/HCPCS: J1171